=== PATIENT | female | born 1935 | race Caucasian/White ===

== ENCOUNTER 2016-06-06 01:32 | Inpatient (IN) | payer OTHER ==
[~2016-06-06] VITALS: Ht 152.4 cm; Wt 150.2 kg
[~2016-06-06 01:32] MED LIST: ADVAIR HFA120 INHAL1 IH; ALDACTONE50 MG PO; ALLOPURINOL100 MG PO; AMLODIPINE BESYL5 MG PO; AMOX TR-K CLV1 EAC4 PO; APLISOL5 TUB UNIT ID; APRESOLINE25 MG PO; ASPIRIN EC325 MG PO; ATENOLOL100 M1 NG; ATENOLOL100 MG PO; ATENOLOL50 MG PO; ATORVASTATIN CA40 MG PO; ATORVASTATIN CA80 MG PO; BACLOFEN10 MG PO; BENZONATATE100 MG PO; BUMETANIDE1 MG PO; BUMETANIDE2 MG PO; BUMEX1 MG PO; CALCITRIOL0.25 MCG PO; CARDIZEM CD,CA240 MG PO; CARDIZEM30 MG PO; CEPHALEXIN500 MG PO; CLARITIN10 M3 PO; COLACE100 MG PO; COLCHICINE0.6 M1 PO; COMBIVENT RESPIM4 GM IH; CRESTOR20 MG PO; DELZICOL400 M1 PO; DULCOLAX10 MG PR; ELIQUIS5 MG PO; ENEMA133 M2 PR; ERGOCALCIF50000 UNIT PO; Eye Drops BOTH EYES; FERROUS SULFAT325 MG PO; FLEET ENEMA-AD118 ML PR; FLONASE16 G1 BOTH NARES; FLORASTOR250 MG PO; FUROSEMIDE40 MG PO; FUROSEMIDE80 MG PO; GLUCOPHAGE XR,500 MG PO; GLUCOPHAGE500 MG PO; HYDROXYCHLOROQ200 MG PO; HYZAAR 50-121 TABLET PO; IRON325 MG PO; K-DUR20 MEQ PO; KEFLEX500 MG PO; KLOR-CON M2020 MEQ PO; KLOR-CON SPRIN10 MEQ PO; LASIX40 MG PO; LISINOPRIL-HCT1 EAC3 PO; LO-DOSE ASPIRIN81 M2 PO; LOPRESSOR100 M1 PO; LOPRESSOR25 MG PO; LOPRESSOR50 MG PO; LORATADINE10 M2 PO; LOSARTAN-HCTZ1 EACH PO; LYRICA50 MG PO; MEDROL DOSEPAK4 MG PO; METFORMIN HCL500 MG PO; METOCLOPRAMIDE10 MG PO; METOLAZONE10 MG PO; METOLAZONE5 MG PO; METOPROLOL SUCC25 MG PO; METOPROLOL TAR100 MG PO; METOPROLOL TART50 MG PO; METRONIDAZOLE500 MG PO; MILK OF MAGN PO; MOTRIN600 MG PO; NORVASC5 MG PO; NYSTATIN15 GM TP; OMEPRAZOLE40 M1 PO; PREDNISONE10 MG PO; PREDNISONE50 MG PO; PRILOSEC40 MG PO; PROAIR HFA8.5 GM IH; PROCRIT10000 UNI1 SC; PROMETHAZINE HC25 M1 PO; REGLAN10 MG PO; ROBITUSSIN COU118 M4 PO; ROBITUSSIN100 MG/5 M PO; ROCALTROL0.25 MCG PO; ROSUVASTATIN CA20 MG PO; SIMVASTATIN80 M1 PO; SPIRONOLACTONE25 MG PO; SPIRONOLACTONE50 MG PO; ST JOSEPH ASPIR81 M2 PO; SYMBICORT60 INHALAT IH; TEARS NATURALE-15 ML LEFT EYE; TESSALON PERLE100 MG PO; TRAMADOL HCL50 MG PO; TYLENOL EXTRA500 MG PO; TYLENOL REGULA325 MG PO; ULTRAM50 MG PO; VALIUM2 MG PO; VENTOLIN HFA18 GM IH; VICODIN 5-5001 EACH PO; VIT B-6; VITAMIN B-1100 MG PO; VITAMIN B-6100 MG PO; XARELTO20 MG PO; ZANTAC150 M2 PO; ZESTORETIC,P1 TABLET PO; ZYLOPRIM100 MG PO
[2016-06-06 01:55] LABS: POINT-OF-CARE METER ID UU13113702
[2016-06-06 02:15] LABS: HEMATOCRIT 29.7 % (36.0-46.0); MCH 28.2 PG (29.0-34.0); MCV 88.1 FL (83-99); MEAN PLAT.VOLUME 11.1 uM^3 (9.5-12.4); PLATELET COUNT 199 K/uL (156-360); RBC DIS.WIDTH-CV 16.3 % (11.8-14.6); RBC DIS.WIDTH-SD 51.7 % (39-53); RED BLOOD COUNT 3.37 M/uL (3.80-5.20); WHITE BLOOD COUNT 9.1 K/uL (4.1-10.2)
[2016-06-06 02:18] LABS: EOSINOPHIL (%) 4.2 % (0-5); EOSINOPHIL COUNT 0.4 K/uL (0-0.3); IMMATURE GRANULOCYTE (%) 0.2 % (0.0-0.7); IMMATURE GRANULOCYTE COUNT 0.2 K/uL; LYMPHOCYTE COUNT 1.1 K/uL (1.0-2.8); MONOCYTE (%) 10.5 % (3-12); NEUTROPHIL (%) 72.9 % (45-76); NEUTROPHIL COUNT 6.6 K/uL (1.8-6.4)
[2016-06-06 02:23] LABS: CHLORIDE 103 mEq/L (99-109); SODIUM 139 mEq/L (136-147)
[2016-06-06 02:27] LABS: ANION GAP 16 MEQ/L (2-14); TOTAL BILIRUBIN 0.8 mg/dL (0.0-1.0)
[2016-06-06 02:29] LABS: ALKALINE PHOSPHATASE 160 IU/L (3-129); GFR ESTIMATE (CALCULATED) 31 mL/min/
[2016-06-06 02:30] LABS: UREA NITROGEN (BUN) 19 mg/dL (9-23)
[2016-06-06 02:35] LABS: GLUCOSE 160 mg/dL (70-99); TROP-I INTERPRETATION NEGATIVE; TROPONIN-I < 0.01 ng/mL (0.0-0.30)
[2016-06-06 03:21] LABS: D-DIMER ELISA 3.29 mg/L FEU (< 0.57)
[2016-06-06] MEDS ORDERED: FERROUS SULFAT325 MG PO (07:56)
[2016-06-06] MEDS ORDERED: LASIX80 MG PO (07:58)
[2016-06-06] MEDS ORDERED: OMEPRAZOLE20 M2 PO (07:59)
[2016-06-06] MEDS ORDERED: DUONEB 2.5-0.5 M3 ML AEROSOL (08:01)
[2016-06-06] MEDS ORDERED: K-DUR20 MEQ PO (08:04)
[2016-06-06 10:16] LABS: TROP-I INTERPRETATION NEGATIVE; TROPONIN-I < 0.01 ng/mL (0.0-0.30)
[2016-06-06 11:46] VITALS: BP 117/57
[2016-06-06 15:45] LABS: TROP-I INTERPRETATION NEGATIVE; TROPONIN-I < 0.01 ng/mL (0.0-0.30)
[2016-06-06 15:54] VITALS: BP 120/58
[2016-06-06 20:00] VITALS: BP 117/57
[2016-06-07 00:54] VITALS: BP 94/68
[2016-06-07 05:49] VITALS: BP 122/65
[2016-06-07 06:19] LABS: ALKALINE PHOSPHATASE 136 IU/L (3-129); ANION GAP 8 MEQ/L (2-14); CHLORIDE 104 MEQ/L (99-109); GFR ESTIMATE (CALCULATED) 31 mL/min/; GLUCOSE 123 mg/dL (70-99); SAMPLE HEMOLYSIS CHECK 0; SAMPLE ICTERIC CHECK 0; SAMPLE LIPEMIA CHECK 0; SODIUM 139 MEQ/L (136-147); TOTAL BILIRUBIN 0.7 MG/DL (0.0-1.0); UREA NITROGEN (BUN) 21 mg/dL (9-23)
[2016-06-07 06:24] LABS: POTASSIUM 4.4 MEQ/L (3.7-5.4)
[2016-06-07 07:38] LABS: HEMATOCRIT 29.3 % (36.0-46.0); MCH 27.7 PG (29.0-34.0); MCHC 31.1 G/DL (30.0-36.0); MCV 89.3 FL (83-99); PLATELET COUNT 162 K/uL (156-360); RBC DIS.WIDTH-CV 16.9 % (11.8-14.6); RBC DIS.WIDTH-SD 55.4 % (39-53); RED BLOOD COUNT 3.28 M/uL (3.80-5.20); WHITE BLOOD COUNT 6.9 K/uL (4.1-10.2)
[2016-06-07 09:01] VITALS: BP 121/64
[2016-06-07 20:26] VITALS: BP 134/59
[2016-06-08 00:06] VITALS: BP 115/60
[2016-06-08 04:11] VITALS: BP 105/53
[2016-06-08 07:13] LABS: ANION GAP 8 MEQ/L (2-14); CHLORIDE 103 MEQ/L (99-109); GFR ESTIMATE (CALCULATED) 33 mL/min/; GLUCOSE 120 mg/dL (70-99); POTASSIUM 3.7 MEQ/L (3.7-5.4); SAMPLE HEMOLYSIS CHECK 0; SAMPLE ICTERIC CHECK 0; SAMPLE LIPEMIA CHECK 0; SODIUM 141 MEQ/L (136-147); UREA NITROGEN (BUN) 23 mg/dL (9-23)
[2016-06-08 09:22] VITALS: BP 125/49
[2016-06-08 12:48] VITALS: BP 105/78
[2016-06-08 16:28] VITALS: BP 117/54
[2016-06-08 19:44] VITALS: BP 128/58
[2016-06-09 00:18] VITALS: BP 128/59
[2016-06-09 06:09] VITALS: BP 135/85
[2016-06-09 08:00] VITALS: BP 146/81
[2016-06-09 08:06] LABS: ANION GAP 8 MEQ/L (2-14); CHLORIDE 103 MEQ/L (99-109); GFR ESTIMATE (CALCULATED) 31 mL/min/; GLUCOSE 115 mg/dL (70-99); POTASSIUM 3.8 MEQ/L (3.7-5.4); SAMPLE HEMOLYSIS CHECK 0; SAMPLE ICTERIC CHECK 0; SAMPLE LIPEMIA CHECK 0; SODIUM 141 MEQ/L (136-147); UREA NITROGEN (BUN) 27 mg/dL (9-23)
[2016-06-09] MEDS ORDERED: METOPROLOL SUCC25 MG PO (11:02)
[2016-06-09] MEDS ORDERED: LASIX80 MG PO (11:02)
[2016-06-09] MEDS ORDERED: DIGOXIN125 MCG PO (11:02)
[2016-06-09 12:00] VITALS: BP 106/58
== END 2016-06-09 15:58 | disposition home or self-care (01) | DRG 308 ==
LOC: EME 01:32 → EDOF 04:42 → 5WEST 11:28
PROVIDERS: Emergency Medicine; Internal Medicine; Internal Medicine Cardiovascular Disease; Student in an Organized Health Care Education/Training Program
DX: I48.0 Paroxysmal atrial fibrillation (principal); I50.33 Acute on chronic diastolic (congestive) heart failure; K92.2 Gastrointestinal hemorrhage, unspecified; J44.1 Chronic obstructive pulmonary disease with (acute) exacerbation; Z68.42 Body mass index [BMI] 45.0-49.9, adult; E87.70 Fluid overload, unspecified; E11.22 Type 2 diabetes mellitus with diabetic chronic kidney disease; I12.9 Hypertensive chronic kidney disease with stage 1 through stage 4 chronic kidney disease, or unspecified chronic kidney disease; N18.3 Chronic kidney disease, stage 3 (moderate); I89.0 Lymphedema, not elsewhere classified; M10.9 Gout, unspecified; K76.0 Fatty (change of) liver, not elsewhere classified; D50.9 Iron deficiency anemia, unspecified; K43.9 Ventral hernia without obstruction or gangrene; I87.2 Venous insufficiency (chronic) (peripheral); E78.5 Hyperlipidemia, unspecified; G47.33 Obstructive sleep apnea (adult) (pediatric); D64.9 Anemia, unspecified; M19.90 Unspecified osteoarthritis, unspecified site; E66.9 Obesity, unspecified; R07.89 Other chest pain; E87.6 Hypokalemia; Z86.73 Personal history of transient ischemic attack (TIA), and cerebral infarction without residual deficits
CPT/HCPCS: 71020; 80048; 80053; 80069; 82948; 83605; 83880; 84484; 84550; 85025; 85027; 85379; 93005; 94640; 94640 76; 99202; 99281; 99285; G0378; G8978 GP CK; G8979 CJ; J1650; J1940

== ENCOUNTER 2016-06-14 07:44 | Inpatient (IN) | payer OTHER ==
[~2016-06-14] VITALS: Ht 152.4 cm; Wt 114.7 kg
[~2016-06-14 07:44] MED LIST changes: +DIGOXIN125 MCG PO; +DUONEB 2.5-0.5 M3 ML AEROSOL; +LASIX80 MG PO; +OMEPRAZOLE20 M2 PO
[2016-06-14 08:19] LABS: HEMATOCRIT 32.9 % (36.0-46.0); MCH 28.3 PG (29.0-34.0); MCHC 31.6 G/DL (30.0-36.0); MCV 89.4 FL (83-99); MEAN PLAT.VOLUME 10.9 uM^3 (9.5-12.4); PLATELET COUNT 180 K/uL (156-360); RED BLOOD COUNT 3.68 M/uL (3.80-5.20)
[2016-06-14 08:20] LABS: WHITE BLOOD COUNT 9.2 K/uL (4.1-10.2)
[2016-06-14 08:26] LABS: CHLORIDE 104 mEq/L (99-109); POTASSIUM 3.6 mEq/L (3.7-5.4); SODIUM 140 mEq/L (136-147)
[2016-06-14 08:28] LABS: GLUCOSE 158 mg/dL (70-99)
[2016-06-14 08:29] LABS: ANION GAP 13 MEQ/L (2-14)
[2016-06-14 08:32] LABS: GFR ESTIMATE (CALCULATED) 29 mL/min/; UREA NITROGEN (BUN) 30 mg/dL (9-23)
[2016-06-14 08:38] LABS: TROP-I INTERPRETATION NEGATIVE; TROPONIN-I < 0.01 ng/mL (0.0-0.30)
[2016-06-14 08:40] LABS: DIGOXIN 0.5 ng/mL (0.8-2.0)
[2016-06-14 09:57] LABS: ADD MIUA? YES; BILIRUBIN NEGATIVE; BLOOD TRACE; COLOR YELLOW ((YELLOW)); GLUCOSE (STRIP) NEGATIVE; KETONES NEGATIVE; LEUKOCYTES MODERATE; NITRITE NEGATIVE; PROTEIN (STRIP) NEGATIVE; SPECIFIC GRAVITY 1.013 (1.000-1.030); UROBILINOGEN 0.2 MG/DL (0.2-1.0)
[2016-06-14 10:09] LABS: EPITHELIAL CELLS 1+; MUCUS RARE; RED BLOOD CELLS 0-5 /HPF (0-5); WHITE BLOOD CELLS 15-20 /HPF (0-5)
[2016-06-14 10:10] LABS: BACTERIA 1+; CASTS PRESENT /LPF; CRYSTALS NONE SEEN; HYALINE CASTS 0-5 /LPF; UCUL ADDED? NO
[2016-06-14] MEDS ORDERED: TOPROL XL25 MG PO (12:06)
[2016-06-14 18:10] VITALS: BP 138/78
[2016-06-14 19:25] VITALS: BP 133/65
[2016-06-14 23:06] VITALS: BP 133/58
[2016-06-15 03:57] VITALS: BP 135/63
[2016-06-15 07:07] VITALS: BP 138/60
[2016-06-15 07:16] LABS: HEMATOCRIT 31.8 % (36.0-46.0); MCH 27.6 PG (29.0-34.0); MCHC 31.4 G/DL (30.0-36.0); MCV 87.8 FL (83-99); RBC DIS.WIDTH-CV 17.3 % (11.8-14.6); RBC DIS.WIDTH-SD 55.8 % (39-53); RED BLOOD COUNT 3.62 M/uL (3.80-5.20); WHITE BLOOD COUNT 8.4 K/uL (4.1-10.2)
[2016-06-15 07:55] LABS: ALKALINE PHOSPHATASE 128 IU/L (3-129); ANION GAP 8 MEQ/L (2-14); CHLORIDE 105 MEQ/L (99-109); GFR ESTIMATE (CALCULATED) 36 mL/min/; SAMPLE HEMOLYSIS CHECK 0; SAMPLE ICTERIC CHECK 0; SAMPLE LIPEMIA CHECK 0; SODIUM 142 MEQ/L (136-147); TOTAL BILIRUBIN 0.8 MG/DL (0.0-1.0); UREA NITROGEN (BUN) 28 mg/dL (9-23)
[2016-06-15 08:01] LABS: GLUCOSE 113 mg/dL (70-99)
[2016-06-15 08:02] LABS: PLATELET COUNT UNABLE TO REPORT K/uL (156-360)
[2016-06-15 12:03] VITALS: BP 156/60
[2016-06-15 16:24] VITALS: BP 140/58
[2016-06-15 19:00] VITALS: BP 137/64
[2016-06-15 23:13] VITALS: BP 121/60
[2016-06-16 03:46] VITALS: BP 122/58
[2016-06-16 07:28] LABS: ALKALINE PHOSPHATASE 130 IU/L (3-129); ANION GAP 12 MEQ/L (2-14); CHLORIDE 103 MEQ/L (99-109); GFR ESTIMATE (CALCULATED) 39 mL/min/; GLUCOSE 109 mg/dL (70-99); POTASSIUM 3.9 MEQ/L (3.7-5.4); SAMPLE HEMOLYSIS CHECK 0; SAMPLE ICTERIC CHECK 0; SAMPLE LIPEMIA CHECK 0; SODIUM 145 MEQ/L (136-147); TOTAL BILIRUBIN 0.7 MG/DL (0.0-1.0); UREA NITROGEN (BUN) 27 mg/dL (9-23)
[2016-06-16 07:31] LABS: HEMATOCRIT 30.6 % (36.0-46.0); MCH 28.4 PG (29.0-34.0); MCHC 31.7 G/DL (30.0-36.0); MCV 89.5 FL (83-99); RBC DIS.WIDTH-CV 17.3 % (11.8-14.6); RBC DIS.WIDTH-SD 56.6 % (39-53); RED BLOOD COUNT 3.42 M/uL (3.80-5.20); WHITE BLOOD COUNT 7.3 K/uL (4.1-10.2)
[2016-06-16 08:03] VITALS: BP 135/73
[2016-06-16 08:07] LABS: BASOPHIL COUNT 0.1 K/uL (0-0.1); EOSINOPHIL (%) 5.5 % (0-5); EOSINOPHIL COUNT 0.4 K/uL (0-0.3); IMMATURE GRANULOCYTE (%) 0.1 % (0.0-0.7); LYMPHOCYTE COUNT 1.1 K/uL (1.0-2.8); MONOCYTE (%) 6.8 % (3-12); MONOCYTE COUNT 0.5 K/uL (0-0.8); NEUTROPHIL COUNT 5.3 K/uL (1.8-6.4)
[2016-06-16 08:51] LABS: MEAN PLAT.VOLUME 11.3 uM^3 (9.5-12.4); PLAT.SUFFICIENCY DECREASED; USER ID SDF
[2016-06-16 08:55] LABS: PLATELET COUNT 147 K/uL (156-360)
[2016-06-16 11:33] VITALS: BP 129/66
[2016-06-16 16:07] VITALS: BP 118/69
[2016-06-16 20:00] VITALS: BP 120/31
[2016-06-17] VITALS (7 sets, daily range): BP systolic 112–134; BP diastolic 54–66
[2016-06-17 01:17] LABS: ADD MIUA? NO; BILIRUBIN NEGATIVE; BLOOD NEGATIVE; COLOR YELLOW ((YELLOW)); GLUCOSE (STRIP) NEGATIVE; KETONES NEGATIVE; LEUKOCYTES NEGATIVE; NITRITE NEGATIVE; PROTEIN (STRIP) NEGATIVE; SPECIFIC GRAVITY 1.016 (1.000-1.030); UCUL ADDED? NO; UROBILINOGEN 0.2 MG/DL (0.2-1.0)
[2016-06-17 07:15] LABS: ANION GAP 8 MEQ/L (2-14); CHLORIDE 102 MEQ/L (99-109); GFR ESTIMATE (CALCULATED) 33 mL/min/; GLUCOSE 114 mg/dL (70-99); POTASSIUM 3.8 MEQ/L (3.7-5.4); SAMPLE HEMOLYSIS CHECK 0; SAMPLE ICTERIC CHECK 0; SAMPLE LIPEMIA CHECK 0; SODIUM 142 MEQ/L (136-147); UREA NITROGEN (BUN) 27 mg/dL (9-23)
[2016-06-18 03:30] VITALS: BP 131/68
[2016-06-18 07:48] LABS: ANION GAP 9 MEQ/L (2-14); CHLORIDE 99 MEQ/L (99-109); GFR ESTIMATE (CALCULATED) 36 mL/min/; GLUCOSE 113 mg/dL (70-99); POTASSIUM 3.9 MEQ/L (3.7-5.4); SAMPLE HEMOLYSIS CHECK 0; SAMPLE ICTERIC CHECK 0; SAMPLE LIPEMIA CHECK 0; SODIUM 142 MEQ/L (136-147); UREA NITROGEN (BUN) 29 mg/dL (9-23)
[2016-06-18 07:50] VITALS: BP 125/58
[2016-06-18] MEDS ORDERED: ALDACTAZIDE 251 EACH PO (10:10)
[2016-06-18] MEDS ORDERED: FUROSEMIDE80 MG PO (10:10)
[2016-06-18 12:00] VITALS: BP 121/58
== END 2016-06-18 15:41 | disposition home or self-care (01) | DRG 292 ==
LOC: EME → EDBD 07:44 → EME 07:44 → 2EAST 09:11 → EDOF 09:11 → 2EAST 17:26
PROVIDERS: Emergency Medicine; Hospitalist; Internal Medicine
DX: I50.33 Acute on chronic diastolic (congestive) heart failure (principal); Z68.42 Body mass index [BMI] 45.0-49.9, adult; E66.01 Morbid (severe) obesity due to excess calories; E88.09 Other disorders of plasma-protein metabolism, not elsewhere classified; E11.22 Type 2 diabetes mellitus with diabetic chronic kidney disease; I12.9 Hypertensive chronic kidney disease with stage 1 through stage 4 chronic kidney disease, or unspecified chronic kidney disease; M48.02 Spinal stenosis, cervical region; N18.3 Chronic kidney disease, stage 3 (moderate); E87.6 Hypokalemia; I48.2 Chronic atrial fibrillation; E78.5 Hyperlipidemia, unspecified; I89.0 Lymphedema, not elsewhere classified; D50.9 Iron deficiency anemia, unspecified; E21.3 Hyperparathyroidism, unspecified; D63.1 Anemia in chronic kidney disease; K74.60 Unspecified cirrhosis of liver; G47.30 Sleep apnea, unspecified; F17.210 Nicotine dependence, cigarettes, uncomplicated; Z90.49 Acquired absence of other specified parts of digestive tract; I35.0 Nonrheumatic aortic (valve) stenosis; Z96.659 Presence of unspecified artificial knee joint; E55.9 Vitamin D deficiency, unspecified; Z86.73 Personal history of transient ischemic attack (TIA), and cerebral infarction without residual deficits
CPT/HCPCS: 71010; 80048; 80053; 80069; 80162; 81003; 83880; 84484; 84550; 85025; 85027; 93005; 93306; 93971; 94640 76; 99202; 99281; 99285; J0696; J1644; J1940; J7050

== ENCOUNTER 2016-06-21 20:39 | Emergency (ER) | payer OTHER ==
[~2016-06-21] VITALS: Ht 152.4 cm; Wt 109.5 kg
[~2016-06-21 20:39] MED LIST changes: +ALDACTAZIDE 251 EACH PO; +TOPROL XL25 MG PO
[2016-06-21 21:18] LABS: HEMATOCRIT 31.4 % (36.0-46.0); MCHC 31.5 G/DL (30.0-36.0); MCV 88.7 FL (83-99); MEAN PLAT.VOLUME 11.6 uM^3 (9.5-12.4); PLATELET COUNT 166 K/uL (156-360); RBC DIS.WIDTH-SD 53.3 % (39-53); RED BLOOD COUNT 3.54 M/uL (3.80-5.20); WHITE BLOOD COUNT 8.7 K/uL (4.1-10.2)
[2016-06-21 21:33] LABS: CHLORIDE 100 mEq/L (99-109); POTASSIUM 3.9 mEq/L (3.7-5.4); SODIUM 139 mEq/L (136-147)
[2016-06-21 21:35] LABS: GLUCOSE 199 mg/dL (70-99)
[2016-06-21 21:36] LABS: ANION GAP 11 MEQ/L (2-14)
[2016-06-21 21:38] LABS: GFR ESTIMATE (CALCULATED) 27 mL/min/
[2016-06-21 21:39] LABS: UREA NITROGEN (BUN) 38 mg/dL (9-23)
[2016-06-21 21:44] LABS: TROP-I INTERPRETATION NEGATIVE; TROPONIN-I < 0.01 ng/mL (0.0-0.30)
[2016-06-21 23:27] LABS: TROP-I INTERPRETATION NEGATIVE; TROPONIN-I < 0.01 ng/mL (0.0-0.30)
[2016-06-22 00:32] VITALS: BP 128/47
== END 2016-06-22 00:35 | disposition home or self-care (01) ==
LOC: EME → EDBD 20:39 → EME 20:39
PROVIDERS: Emergency Medicine
DX: J06.9 Acute upper respiratory infection, unspecified (principal); R07.9 Chest pain, unspecified; J45.909 Unspecified asthma, uncomplicated; G89.29 Other chronic pain; E78.5 Hyperlipidemia, unspecified; I10 Essential (primary) hypertension; K21.9 Gastro-esophageal reflux disease without esophagitis; E11.9 Type 2 diabetes mellitus without complications
CPT/HCPCS: 71020; 80048; 84484; 85027; 93005; 99281; 99285

== ENCOUNTER 2016-06-27 03:11 | Inpatient (IN) | payer OTHER ==
[~2016-06-27] VITALS: Ht 154.9 cm; Wt 107.0 kg
[2016-06-27 03:38] LABS: HEMATOCRIT 33.1 % (36.0-46.0); MCH 27.9 PG (29.0-34.0); MCV 87.1 FL (83-99); MEAN PLAT.VOLUME 11.6 uM^3 (9.5-12.4); PLATELET COUNT 200 K/uL (156-360); RBC DIS.WIDTH-SD 53.1 % (39-53); WHITE BLOOD COUNT 8.3 K/uL (4.1-10.2)
[2016-06-27 03:45] LABS: CHLORIDE 98 mEq/L (99-109); POTASSIUM 3.8 mEq/L (3.7-5.4); SODIUM 137 mEq/L (136-147)
[2016-06-27 03:48] LABS: GLUCOSE 176 mg/dL (70-99)
[2016-06-27 03:49] LABS: ANION GAP 14 MEQ/L (2-14)
[2016-06-27 03:51] LABS: ALKALINE PHOSPHATASE 148 IU/L (3-129); GFR ESTIMATE (CALCULATED) 21 mL/min/
[2016-06-27 03:52] LABS: UREA NITROGEN (BUN) 40 mg/dL (9-23)
[2016-06-27 03:55] LABS: LIPASE 16 U/L (1.0-51.0)
[2016-06-27 07:34] VITALS: BP 122/57
[2016-06-27 14:26] VITALS: BP 128/58
[2016-06-27 16:00] VITALS: BP 126/57
[2016-06-28] VITALS (7 sets, daily range): BP systolic 13–173; BP diastolic 50–98
[2016-06-28 06:56] LABS: HEMATOCRIT 28.9 % (36.0-46.0); MCH 28.4 PG (29.0-34.0); MCHC 32.5 G/DL (30.0-36.0); MCV 87.3 FL (83-99); MEAN PLAT.VOLUME 11.9 uM^3 (9.5-12.4); PLATELET COUNT 165 K/uL (156-360); RBC DIS.WIDTH-CV 17.3 % (11.8-14.6); RBC DIS.WIDTH-SD 54.7 % (39-53); RED BLOOD COUNT 3.31 M/uL (3.80-5.20); WHITE BLOOD COUNT 6.1 K/uL (4.1-10.2)
[2016-06-28 07:04] LABS: EOSINOPHIL (%) 5.8 % (0-5); EOSINOPHIL COUNT 0.4 K/uL (0-0.3); MONOCYTE (%) 7.4 % (3-12); MONOCYTE COUNT 0.5 K/uL (0-0.8); NEUTROPHIL (%) 69.9 % (45-76); NEUTROPHIL COUNT 4.2 K/uL (1.8-6.4)
[2016-06-28 07:20] LABS: ANION GAP 9 MEQ/L (2-14); CHLORIDE 99 MEQ/L (99-109); GFR ESTIMATE (CALCULATED) 22 mL/min/; POTASSIUM 4.2 MEQ/L (3.7-5.4); SAMPLE HEMOLYSIS CHECK 0; SAMPLE ICTERIC CHECK 0; SAMPLE LIPEMIA CHECK 0; SODIUM 139 MEQ/L (136-147); UREA NITROGEN (BUN) 39 mg/dL (9-23)
[2016-06-28 07:23] LABS: GLUCOSE 110 mg/dL (70-99)
[2016-06-28 22:11] LABS: POINT-OF-CARE METER ID UU13113725
[2016-06-29 02:38] VITALS: BP 111/53
[2016-06-29 05:59] LABS: POINT-OF-CARE METER ID UU13113725
[2016-06-29 06:30] LABS: HEMATOCRIT 29.4 % (36.0-46.0); MCH 28.2 PG (29.0-34.0); MCHC 32.3 G/DL (30.0-36.0); MCV 87.2 FL (83-99); MEAN PLAT.VOLUME 11.2 uM^3 (9.5-12.4); PLATELET COUNT 158 K/uL (156-360); RBC DIS.WIDTH-CV 17.1 % (11.8-14.6); RBC DIS.WIDTH-SD 54.6 % (39-53); RED BLOOD COUNT 3.37 M/uL (3.80-5.20); WHITE BLOOD COUNT 6.8 K/uL (4.1-10.2)
[2016-06-29 06:54] LABS: EOSINOPHIL (%) 4.7 % (0-5); EOSINOPHIL COUNT 0.3 K/uL (0-0.3); LYMPHOCYTE COUNT 1.1 K/uL (1.0-2.8); MONOCYTE (%) 8.7 % (3-12); MONOCYTE COUNT 0.6 K/uL (0-0.8); NEUTROPHIL (%) 69.9 % (45-76); NEUTROPHIL COUNT 4.8 K/uL (1.8-6.4)
[2016-06-29 06:56] LABS: ANION GAP 10 MEQ/L (2-14); CHLORIDE 99 MEQ/L (99-109); GFR ESTIMATE (CALCULATED) 21 mL/min/; GLUCOSE 119 mg/dL (70-99); POTASSIUM 4.1 MEQ/L (3.7-5.4); SAMPLE HEMOLYSIS CHECK 0; SAMPLE ICTERIC CHECK 0; SAMPLE LIPEMIA CHECK 0; SODIUM 139 MEQ/L (136-147); UREA NITROGEN (BUN) 44 mg/dL (9-23)
[2016-06-29 08:17] VITALS: BP 130/58
[2016-06-29 11:09] LABS: POINT-OF-CARE METER ID UU13113725
[2016-06-29 11:29] VITALS: BP 129/59
[2016-06-29 16:15] LABS: POINT-OF-CARE METER ID UU13113725
[2016-06-29 16:35] VITALS: BP 103/53
[2016-06-29 19:44] LABS: INTER. NORMALIZED RATIO 1.1; PROTHROMBIN TIME 11.7 (9.2-11.2); PTT 24.9 (25-32)
[2016-06-29 21:18] LABS: DIGOXIN 1.4 ng/mL (0.8-2.0)
[2016-06-29 23:10] VITALS: BP 121/57
[2016-06-30 03:04] VITALS: BP 141/62
[2016-06-30 07:22] LABS: HEMATOCRIT 31.8 % (36.0-46.0); MCH 28.1 PG (29.0-34.0); MCHC 32.4 G/DL (30.0-36.0); MCV 86.6 FL (83-99); PLATELET COUNT 165 K/uL (156-360); RBC DIS.WIDTH-CV 17.1 % (11.8-14.6); RED BLOOD COUNT 3.67 M/uL (3.80-5.20); WHITE BLOOD COUNT 6.9 K/uL (4.1-10.2)
[2016-06-30 07:45] LABS: ALKALINE PHOSPHATASE 133 IU/L (3-129); ANION GAP 10 MEQ/L (2-14); CHLORIDE 99 MEQ/L (99-109); GFR ESTIMATE (CALCULATED) 20 mL/min/; GLUCOSE 120 mg/dL (70-99); POTASSIUM 4.2 MEQ/L (3.7-5.4); SAMPLE HEMOLYSIS CHECK 0; SAMPLE ICTERIC CHECK 0; SAMPLE LIPEMIA CHECK 0; SODIUM 138 MEQ/L (136-147); TOTAL BILIRUBIN 0.9 MG/DL (0.0-1.0); UREA NITROGEN (BUN) 40 mg/dL (9-23)
[2016-06-30 08:15] VITALS: BP 142/68
[2016-06-30 11:06] VITALS: BP 148/68
[2016-06-30 15:08] VITALS: BP 139/64
[2016-06-30 16:22] LABS: POINT-OF-CARE METER ID UU13113725
[2016-06-30 19:40] VITALS: BP 119/78
[2016-06-30 19:46] VITALS: BP 129/60
[2016-06-30 21:08] LABS: POINT-OF-CARE METER ID UU13113725
[2016-07-01 00:29] VITALS: BP 151/98
[2016-07-01 03:49] VITALS: BP 131/66
[2016-07-01 06:28] LABS: HEMATOCRIT 30.7 % (36.0-46.0); MCH 27.7 PG (29.0-34.0); MCHC 32.2 G/DL (30.0-36.0); MEAN PLAT.VOLUME 11.5 uM^3 (9.5-12.4); PLATELET COUNT 185 K/uL (156-360); RBC DIS.WIDTH-SD 53.3 % (39-53); RED BLOOD COUNT 3.57 M/uL (3.80-5.20); WHITE BLOOD COUNT 8.3 K/uL (4.1-10.2)
[2016-07-01 06:53] LABS: ANION GAP 11 MEQ/L (2-14); CHLORIDE 102 MEQ/L (99-109); GFR ESTIMATE (CALCULATED) 23 mL/min/; GLUCOSE 134 mg/dL (70-99); IRON 50 MCG/DL (35-150); SAMPLE HEMOLYSIS CHECK 0; SAMPLE ICTERIC CHECK 0; SAMPLE LIPEMIA CHECK 0; SODIUM 141 MEQ/L (136-147); UREA NITROGEN (BUN) 35 mg/dL (9-23)
[2016-07-01 07:00] LABS: EOSINOPHIL (%) 2.3 % (0-5); EOSINOPHIL COUNT 0.2 K/uL (0-0.3); IMMATURE GRANULOCYTE (%) 0.2 % (0.0-0.7); LYMPHOCYTE COUNT 1.1 K/uL (1.0-2.8); MONOCYTE (%) 8.4 % (3-12); MONOCYTE COUNT 0.7 K/uL (0-0.8); NEUTROPHIL COUNT 6.2 K/uL (1.8-6.4)
[2016-07-01 07:30] VITALS: BP 142/73
[2016-07-01 11:20] VITALS: BP 173/83
[2016-07-01 15:40] VITALS: BP 142/65
[2016-07-01 22:33] VITALS: BP 143/62
[2016-07-02 00:55] VITALS: BP 163/93
[2016-07-02 01:15] VITALS: BP 158/87
[2016-07-02 05:49] LABS: POINT-OF-CARE METER ID UU13113725
[2016-07-02 07:53] LABS: ALKALINE PHOSPHATASE 105 IU/L (3-129); ANION GAP 10 MEQ/L (2-14); ANION GAP 11 MEQ/L (2-14); CHLORIDE 105 MEQ/L (99-109); CHLORIDE 106 MEQ/L (99-109); GFR ESTIMATE (CALCULATED) 26 mL/min/; GLUCOSE 87 mg/dL (70-99); GLUCOSE 89 mg/dL (70-99); POTASSIUM 3.9 MEQ/L (3.7-5.4); SAMPLE HEMOLYSIS CHECK 0; SAMPLE ICTERIC CHECK 0; SAMPLE LIPEMIA CHECK 0; SODIUM 142 MEQ/L (136-147); SODIUM 143 MEQ/L (136-147); TOTAL BILIRUBIN 0.8 MG/DL (0.0-1.0); UREA NITROGEN (BUN) 32 mg/dL (9-23)
[2016-07-02 08:08] VITALS: BP 144/90
[2016-07-02 10:58] LABS: ADD MIUA? NO; BILIRUBIN NEGATIVE; BLOOD NEGATIVE; COLOR YELLOW ((YELLOW)); GLUCOSE (STRIP) NEGATIVE; KETONES NEGATIVE; LEUKOCYTES NEGATIVE; NITRITE NEGATIVE; PROTEIN (STRIP) NEGATIVE; SPECIFIC GRAVITY 1.009 (1.000-1.030); UROBILINOGEN 0.2 MG/DL (0.2-1.0)
[2016-07-02 11:36] LABS: POINT-OF-CARE METER ID UU13113725
[2016-07-02 13:55] VITALS: BP 134/69
[2016-07-02 15:43] VITALS: BP 135/63
[2016-07-03 00:38] VITALS: BP 138/63
[2016-07-03 03:42] VITALS: BP 126/64
[2016-07-03 08:25] LABS: ANION GAP 12 MEQ/L (2-14); CHLORIDE 104 MEQ/L (99-109); GFR ESTIMATE (CALCULATED) 26 mL/min/; GLUCOSE 104 mg/dL (70-99); POTASSIUM 3.8 MEQ/L (3.7-5.4); SAMPLE HEMOLYSIS CHECK 0; SAMPLE ICTERIC CHECK 0; SAMPLE LIPEMIA CHECK 0; SODIUM 143 MEQ/L (136-147); UREA NITROGEN (BUN) 28 mg/dL (9-23)
[2016-07-03 08:40] VITALS: BP 118/54
[2016-07-03 11:32] LABS: POINT-OF-CARE METER ID UU13113725
[2016-07-03 17:31] VITALS: BP 137/62
[2016-07-03 22:49] VITALS: BP 122/58
[2016-07-04 06:27] LABS: ANION GAP 10 MEQ/L (2-14); CHLORIDE 103 MEQ/L (99-109); GFR ESTIMATE (CALCULATED) 27 mL/min/; GLUCOSE 117 mg/dL (70-99); POTASSIUM 4.1 MEQ/L (3.7-5.4); SAMPLE HEMOLYSIS CHECK 0; SAMPLE ICTERIC CHECK 0; SAMPLE LIPEMIA CHECK 0; SODIUM 141 MEQ/L (136-147); UREA NITROGEN (BUN) 24 mg/dL (9-23)
[2016-07-04 08:48] VITALS: BP 128/64
[2016-07-04 23:58] VITALS: BP 132/64
[2016-07-05 06:34] LABS: HEMATOCRIT 30.7 % (36.0-46.0); MCH 28.5 PG (29.0-34.0); MCHC 31.9 G/DL (30.0-36.0); MCV 89.2 FL (83-99); MEAN PLAT.VOLUME 11.5 uM^3 (9.5-12.4); PLATELET COUNT 144 K/uL (156-360); RBC DIS.WIDTH-CV 17.2 % (11.8-14.6); RED BLOOD COUNT 3.44 M/uL (3.80-5.20); WHITE BLOOD COUNT 7.7 K/uL (4.1-10.2)
[2016-07-05 06:56] LABS: ANION GAP 10 MEQ/L (2-14); CHLORIDE 101 MEQ/L (99-109); GFR ESTIMATE (CALCULATED) 31 mL/min/; GLUCOSE 107 mg/dL (70-99); POTASSIUM 4.2 MEQ/L (3.7-5.4); SAMPLE HEMOLYSIS CHECK 0; SAMPLE ICTERIC CHECK 0; SAMPLE LIPEMIA CHECK 0; SODIUM 137 MEQ/L (136-147); UREA NITROGEN (BUN) 23 mg/dL (9-23)
[2016-07-05 07:15] LABS: EOSINOPHIL (%) 4.1 % (0-5); EOSINOPHIL COUNT 0.3 K/uL (0-0.3); IMMATURE GRANULOCYTE (%) 0.3 % (0.0-0.7); LYMPHOCYTE COUNT 1.1 K/uL (1.0-2.8); MONOCYTE (%) 9.2 % (3-12); MONOCYTE COUNT 0.7 K/uL (0-0.8); NEUTROPHIL COUNT 5.6 K/uL (1.8-6.4)
[2016-07-05 07:28] VITALS: BP 114/63
[2016-07-05] MEDS ORDERED: BUMETANIDE1 MG PO (11:14)
[2016-07-05] MEDS ORDERED: KRISTALOSE20 GM PO (11:16)
== END 2016-07-05 13:53 | disposition home health service (06) | DRG 442 ==
LOC: EME 03:11 → EDOF 05:35 → 5WEST 07:10 → 5EAST 06-28 12:48
PROVIDERS: Internal Medicine; Specialist
DX: K72.90 Hepatic failure, unspecified without coma (principal); R18.8 Other ascites; K76.6 Portal hypertension; I50.32 Chronic diastolic (congestive) heart failure; N25.81 Secondary hyperparathyroidism of renal origin; K92.1 Melena; Z68.42 Body mass index [BMI] 45.0-49.9, adult; R26.2 Difficulty in walking, not elsewhere classified; R00.1 Bradycardia, unspecified; E86.0 Dehydration; R11.2 Nausea with vomiting, unspecified; I12.9 Hypertensive chronic kidney disease with stage 1 through stage 4 chronic kidney disease, or unspecified chronic kidney disease; N18.3 Chronic kidney disease, stage 3 (moderate); E11.22 Type 2 diabetes mellitus with diabetic chronic kidney disease; E11.649 Type 2 diabetes mellitus with hypoglycemia without coma; R79.89 Other specified abnormal findings of blood chemistry; T50.2X5A Adverse effect of carbonic-anhydrase inhibitors, benzothiadiazides and other diuretics, initial encounter; K74.60 Unspecified cirrhosis of liver; D50.9 Iron deficiency anemia, unspecified; I48.0 Paroxysmal atrial fibrillation; I89.0 Lymphedema, not elsewhere classified; I87.8 Other specified disorders of veins; K21.9 Gastro-esophageal reflux disease without esophagitis; J44.9 Chronic obstructive pulmonary disease, unspecified; E78.5 Hyperlipidemia, unspecified; E55.9 Vitamin D deficiency, unspecified; M19.90 Unspecified osteoarthritis, unspecified site; Z96.653 Presence of artificial knee joint, bilateral; Z66 Do not resuscitate; E66.01 Morbid (severe) obesity due to excess calories; Z88.5 Allergy status to narcotic agent; Z86.73 Personal history of transient ischemic attack (TIA), and cerebral infarction without residual deficits
CPT/HCPCS: 70450; 71020; 74176; 80048; 80053; 80069; 80162; 81003; 82140; 82728; 82948; 83540; 83690; 83880; 84466; 85025; 85027; 85610; 85730; 94640; 94640 76; 97530 GO; 97530 GP; 99202; 99281; 99285; G0378; J0881; J1644; J1815; J2405; J2765; J3010; J7030; Q0169; S0028

== ENCOUNTER 2016-08-23 17:04 | Inpatient (IN) | payer OTHER ==
[~2016-08-23] VITALS: Ht 152.4 cm; Wt 96.6 kg
[~2016-08-23 17:04] MED LIST changes: +KRISTALOSE20 GM PO
[2016-08-23 17:40] LABS: HEMATOCRIT 32.9 % (36.0-46.0); MCHC 32.5 G/DL (30.0-36.0); MCV 86.1 FL (83-99); MEAN PLAT.VOLUME 10.9 uM^3 (9.5-12.4); PLATELET COUNT 181 K/uL (156-360); RBC DIS.WIDTH-CV 16.3 % (11.8-14.6); RBC DIS.WIDTH-SD 51.1 % (39-53); RED BLOOD COUNT 3.82 M/uL (3.80-5.20); WHITE BLOOD COUNT 7.2 K/uL (4.1-10.2)
[2016-08-23 17:43] LABS: CHLORIDE 100 mEq/L (99-109); POTASSIUM 3.5 mEq/L (3.7-5.4); SODIUM 139 mEq/L (136-147)
[2016-08-23 17:45] LABS: GLUCOSE 168 mg/dL (70-99)
[2016-08-23 17:46] LABS: ANION GAP 16 MEQ/L (2-14)
[2016-08-23 17:47] LABS: TOTAL BILIRUBIN 0.7 mg/dL (0.0-1.0)
[2016-08-23 17:48] LABS: ALKALINE PHOSPHATASE 127 IU/L (3-129)
[2016-08-23 17:49] LABS: GFR ESTIMATE (CALCULATED) 23 mL/min/
[2016-08-23 17:50] LABS: UREA NITROGEN (BUN) 39 mg/dL (9-23)
[2016-08-23 17:52] LABS: LIPASE 34 U/L (1.0-51.0)
[2016-08-23 18:04] LABS: ADD MIUA? YES; BILIRUBIN NEGATIVE; BLOOD SMALL; COLOR YELLOW ((YELLOW)); GLUCOSE (STRIP) NEGATIVE; KETONES NEGATIVE; LEUKOCYTES NEGATIVE; NITRITE NEGATIVE; PROTEIN (STRIP) NEGATIVE; SPECIFIC GRAVITY 1.009 (1.000-1.030); UROBILINOGEN 0.2 MG/DL (0.2-1.0)
[2016-08-23 18:18] LABS: RED BLOOD CELLS 0-5 /HPF (0-5); WHITE BLOOD CELLS 0-5 /HPF (0-5)
[2016-08-23 18:19] LABS: BACTERIA RARE /HPF; CASTS PRESENT /LPF; EPITHELIAL CELLS NONE SEEN /HPF; HYALINE CASTS 15-20 /LPF; MUCUS 1+ /LPF; UCUL ADDED? NO
[2016-08-23 23:44] VITALS: BP 106/54
[2016-08-24 04:08] VITALS: BP 110/57
[2016-08-24 07:38] LABS: ALKALINE PHOSPHATASE 96 IU/L (3-129); ANION GAP 10 MEQ/L (2-14); CHLORIDE 103 MEQ/L (99-109); DIRECT BILIRUBIN 0.3 mg/dL (0.0-0.3); GFR ESTIMATE (CALCULATED) 27 mL/min/; POTASSIUM 3.3 MEQ/L (3.7-5.4); SAMPLE HEMOLYSIS CHECK 0; SAMPLE ICTERIC CHECK 0; SAMPLE LIPEMIA CHECK 0; SODIUM 141 MEQ/L (136-147); TOTAL BILIRUBIN 0.7 MG/DL (0.0-1.0); UREA NITROGEN (BUN) 34 mg/dL (9-23)
[2016-08-24 07:40] LABS: GLUCOSE 107 mg/dL (70-99)
[2016-08-24 07:50] VITALS: BP 109/57
[2016-08-24 12:05] VITALS: BP 109/51
[2016-08-24 15:45] VITALS: BP 104/55
[2016-08-24 19:05] VITALS: BP 101/54
[2016-08-24 23:09] VITALS: BP 122/84
[2016-08-25 03:21] VITALS: BP 113/62
[2016-08-25 06:48] LABS: MCH 27.6 PG (29.0-34.0); MCHC 31.8 G/DL (30.0-36.0); MEAN PLAT.VOLUME 11.5 uM^3 (9.5-12.4); PLATELET COUNT 144 K/uL (156-360); RBC DIS.WIDTH-CV 16.7 % (11.8-14.6); RBC DIS.WIDTH-SD 52.6 % (39-53); RED BLOOD COUNT 3.22 M/uL (3.80-5.20); WHITE BLOOD COUNT 5.7 K/uL (4.1-10.2)
[2016-08-25 06:59] LABS: ALKALINE PHOSPHATASE 85 IU/L (3-129); ANION GAP 11 MEQ/L (2-14); CHLORIDE 107 MEQ/L (99-109); GFR ESTIMATE (CALCULATED) 29 mL/min/; GLUCOSE 84 mg/dL (70-99); POTASSIUM 3.1 MEQ/L (3.7-5.4); SAMPLE HEMOLYSIS CHECK 0; SAMPLE ICTERIC CHECK 0; SAMPLE LIPEMIA CHECK 0; SODIUM 143 MEQ/L (136-147); TOTAL BILIRUBIN 0.6 MG/DL (0.0-1.0); UREA NITROGEN (BUN) 32 mg/dL (9-23)
[2016-08-25 07:35] VITALS: BP 126/60
[2016-08-25 11:25] VITALS: BP 128/60
[2016-08-25 16:15] VITALS: BP 113/53
[2016-08-25 20:59] VITALS: BP 125/64
[2016-08-25 23:48] VITALS: BP 123/56
[2016-08-26 04:30] VITALS: BP 115/56
[2016-08-26 06:40] LABS: HEMATOCRIT 28.4 % (36.0-46.0); MCH 27.6 PG (29.0-34.0); MCHC 31.7 G/DL (30.0-36.0); MCV 87.1 FL (83-99); PLATELET COUNT 142 K/uL (156-360); RBC DIS.WIDTH-CV 16.7 % (11.8-14.6); RBC DIS.WIDTH-SD 52.8 % (39-53); RED BLOOD COUNT 3.26 M/uL (3.80-5.20); WHITE BLOOD COUNT 5.7 K/uL (4.1-10.2)
[2016-08-26 07:02] LABS: ANION GAP 12 MEQ/L (2-14); CHLORIDE 107 MEQ/L (99-109); GFR ESTIMATE (CALCULATED) 31 mL/min/; GLUCOSE 92 mg/dL (70-99); POTASSIUM 3.3 MEQ/L (3.7-5.4); SAMPLE HEMOLYSIS CHECK 0; SAMPLE ICTERIC CHECK 0; SAMPLE LIPEMIA CHECK 0; SODIUM 142 MEQ/L (136-147); UREA NITROGEN (BUN) 28 mg/dL (9-23)
[2016-08-26 07:03] VITALS: BP 109/55
[2016-08-26 11:19] VITALS: BP 108/55
[2016-08-26 15:25] VITALS: BP 107/53
[2016-08-26 19:25] VITALS: BP 99/51
[2016-08-26 23:59] VITALS: BP 99/41
[2016-08-27] VITALS (9 sets, daily range): BP systolic 87–126; BP diastolic 47–66
[2016-08-27 09:35] LABS: ANION GAP 10 MEQ/L (2-14); CHLORIDE 105 MEQ/L (99-109); GFR ESTIMATE (CALCULATED) 33 mL/min/; GLUCOSE 94 mg/dL (70-99); POTASSIUM 3.7 MEQ/L (3.7-5.4); SAMPLE HEMOLYSIS CHECK 0; SAMPLE ICTERIC CHECK 0; SAMPLE LIPEMIA CHECK 0; SODIUM 140 MEQ/L (136-147); UREA NITROGEN (BUN) 25 mg/dL (9-23)
[2016-08-28 03:45] VITALS: BP 90/48
[2016-08-28 07:17] VITALS: BP 108/50
[2016-08-28] MEDS ORDERED: VALTREX1000 MG PO (09:54)
[2016-08-28 10:40] VITALS: BP 98/48
[2016-08-28] MEDS ORDERED: BUMETANIDE0.5 MG PO (11:51)
[2016-08-28] MEDS ORDERED: K-DUR20 MEQ PO (11:51)
== END 2016-08-28 15:10 | disposition home health service (06) | DRG 683 ==
LOC: EME 17:04 → 2EAST 21:58 → EDOF 21:58 → 2EAST 23:19
PROVIDERS: Emergency Medicine; Family Medicine; Hospitalist
DX: N17.9 Acute kidney failure, unspecified (principal); E87.2 Acidosis; K76.6 Portal hypertension; Z68.41 Body mass index [BMI] 40.0-44.9, adult; I48.0 Paroxysmal atrial fibrillation; J44.9 Chronic obstructive pulmonary disease, unspecified; B02.9 Zoster without complications; K72.90 Hepatic failure, unspecified without coma; E11.22 Type 2 diabetes mellitus with diabetic chronic kidney disease; K74.60 Unspecified cirrhosis of liver; N28.1 Cyst of kidney, acquired; E87.6 Hypokalemia; I89.0 Lymphedema, not elsewhere classified; N18.3 Chronic kidney disease, stage 3 (moderate); E78.5 Hyperlipidemia, unspecified; I12.9 Hypertensive chronic kidney disease with stage 1 through stage 4 chronic kidney disease, or unspecified chronic kidney disease; E66.9 Obesity, unspecified; M19.90 Unspecified osteoarthritis, unspecified site; D63.1 Anemia in chronic kidney disease; I87.8 Other specified disorders of veins; K21.9 Gastro-esophageal reflux disease without esophagitis; Z96.653 Presence of artificial knee joint, bilateral; Z86.73 Personal history of transient ischemic attack (TIA), and cerebral infarction without residual deficits; Z90.49 Acquired absence of other specified parts of digestive tract
CPT/HCPCS: 74176; 80048; 80053; 80076; 81003; 82140; 83605; 83690; 83735; 85027; 87040; 93005; 94640; 94640 76; 99202; 99281; 99285; J0780; J1200; J1644; J2270; J2405; J2543; J7030; J7050

== ENCOUNTER 2016-09-15 13:11 | Inpatient (IN) | payer OTHER ==
[~2016-09-15] VITALS: Ht 152.4 cm; Wt 95.7 kg
[~2016-09-15 13:11] MED LIST changes: +BUMETANIDE0.5 MG PO; +VALTREX1000 MG PO
[2016-09-15 14:11] LABS: HEMATOCRIT 36.6 % (36.0-46.0); MCH 28.6 PG (29.0-34.0); MCV 89.5 FL (83-99); MEAN PLAT.VOLUME 10.5 uM^3 (9.5-12.4); PLATELET COUNT 216 K/uL (156-360); RBC DIS.WIDTH-CV 18.5 % (11.8-14.6); RBC DIS.WIDTH-SD 57.8 % (39-53); RED BLOOD COUNT 4.09 M/uL (3.80-5.20); WHITE BLOOD COUNT 13.4 K/uL (4.1-10.2)
[2016-09-15 14:16] LABS: CHLORIDE 103 mEq/L (99-109); POTASSIUM 3.8 mEq/L (3.7-5.4); SODIUM 140 mEq/L (136-147)
[2016-09-15 14:18] LABS: GLUCOSE 172 mg/dL (70-99)
[2016-09-15 14:20] LABS: ANION GAP 16 MEQ/L (2-14); TOTAL BILIRUBIN 1.1 mg/dL (0.0-1.0)
[2016-09-15 14:22] LABS: ALKALINE PHOSPHATASE 146 IU/L (3-129); GFR ESTIMATE (CALCULATED) 33 mL/min/
[2016-09-15 14:23] LABS: UREA NITROGEN (BUN) 23 mg/dL (9-23)
[2016-09-15 16:10] LABS: LIPASE 16 U/L (1.0-51.0)
[2016-09-15 17:23] LABS: INFLUENZA A VIRAL ANTIGEN NEGATIVE; INFLUENZA B VIRAL ANTIGEN NEGATIVE
[2016-09-15 17:35] LABS: ADD MIUA? NO; BILIRUBIN NEGATIVE; BLOOD NEGATIVE; COLOR YELLOW ((YELLOW)); GLUCOSE (STRIP) NEGATIVE; KETONES NEGATIVE; LEUKOCYTES NEGATIVE; NITRITE NEGATIVE; PROTEIN (STRIP) NEGATIVE; SPECIFIC GRAVITY 1.009 (1.000-1.030); UCUL ADDED? NO; UROBILINOGEN 0.2 MG/DL (0.2-1.0)
[2016-09-15] MEDS ORDERED: DIGITEK125 MC2 PO (20:18)
[2016-09-15] MEDS ORDERED: BUMEX1 MG PO (20:20)
[2016-09-16 00:40] VITALS: BP 109/51
[2016-09-16 01:42] LABS: TROP-I INTERPRETATION NEGATIVE; TROPONIN-I 0.05 ng/mL (0.0-0.30)
[2016-09-16 04:24] VITALS: BP 113/55
[2016-09-16 06:48] LABS: EOSINOPHIL (%) 0 % (0-5); HEMATOCRIT 27.6 % (36.0-46.0); IMMATURE GRANULOCYTE (%) 0.7 % (0.0-0.7); IMMATURE GRANULOCYTE COUNT 0.1 K/uL; INSTRUMENT ABS NEUTROPHIL CT 17.4 K/uL; LYMPHOCYTE COUNT 0.6 K/uL (1.0-2.8); MCHC 32.2 G/DL (30.0-36.0); MCV 89.9 FL (83-99); MONOCYTE (%) 3.5 % (3-12); MONOCYTE COUNT 0.7 K/uL (0-0.8); NEUTROPHIL (%) 92.8 % (45-76); NEUTROPHIL COUNT 17.4 K/uL (1.8-6.4); RBC DIS.WIDTH-CV 18.8 % (11.8-14.6); RBC DIS.WIDTH-SD 59.7 % (39-53)
[2016-09-16 06:50] LABS: RED BLOOD COUNT 3.07 M/uL (3.80-5.20); WHITE BLOOD COUNT 18.8 K/uL (4.1-10.2)
[2016-09-16 07:06] LABS: ANION GAP 16 MEQ/L (2-14); CHLORIDE 105 MEQ/L (99-109); GFR ESTIMATE (CALCULATED) 29 mL/min/; GLUCOSE 161 mg/dL (70-99); SAMPLE HEMOLYSIS CHECK 0; SAMPLE ICTERIC CHECK 0; SAMPLE LIPEMIA CHECK 0; SODIUM 141 MEQ/L (136-147); UREA NITROGEN (BUN) 25 mg/dL (9-23)
[2016-09-16 07:07] LABS: MEAN PLAT.VOLUME 11.5 uM^3 (9.5-12.4); PLAT.SUFFICIENCY DECREASED
[2016-09-16 07:08] LABS: PLATELET COUNT 128 K/uL (156-360)
[2016-09-16 07:14] LABS: TROP-I INTERPRETATION NEGATIVE; TROPONIN-I 0.06 ng/mL (0.0-0.30)
[2016-09-16 07:30] VITALS: BP 118/51
[2016-09-16 13:01] VITALS: BP 116/50
[2016-09-16 13:58] LABS: TROP-I INTERPRETATION NEGATIVE; TROPONIN-I 0.06 ng/mL (0.0-0.30)
[2016-09-16 14:17] LABS: INTERNAL CONTROL VALID? YES
[2016-09-16 14:25] LABS: C DIFF TOXIN POSITIVE (NEGATIVE)
[2016-09-16 14:26] LABS: PROBE CHECK PASS
[2016-09-16 17:00] LABS: BASE EXCESS 0.9 mEq/L (-3 to +3); BICARBONATE 25.2 mEq/L (22-26); CARBOXY HGB 1.7 % (0-5); METHEMOGLOBIN 1.5 % (0-1.5); PCO2 38 mm Hg (35-45); PO2 83 mm Hg (80-100); pH 7.43 (7.35-7.45)
[2016-09-16 17:01] LABS: COMMENTS - BLOOD GASES A+C+; FI02 0.21 %; SITE RR; TOTAL RESP RATE 16 resp/min
[2016-09-16 19:45] LABS: POINT-OF-CARE METER ID UU14174225
[2016-09-16 19:46] VITALS: BP 117/53
[2016-09-17 04:00] VITALS: BP 114/51
[2016-09-17 07:10] LABS: MCHC 32.6 G/DL (30.0-36.0); MCV 89.1 FL (83-99); MEAN PLAT.VOLUME 11.5 uM^3 (9.5-12.4); PLATELET COUNT 120 K/uL (156-360); RBC DIS.WIDTH-CV 18.9 % (11.8-14.6); RED BLOOD COUNT 3.03 M/uL (3.80-5.20)
[2016-09-17 07:21] LABS: ANION GAP 12 MEQ/L (2-14); CHLORIDE 107 MEQ/L (99-109); GFR ESTIMATE (CALCULATED) 27 mL/min/; POTASSIUM 3.8 MEQ/L (3.7-5.4); SAMPLE HEMOLYSIS CHECK 0; SAMPLE ICTERIC CHECK 0; SAMPLE LIPEMIA CHECK 0; SODIUM 142 MEQ/L (136-147); UREA NITROGEN (BUN) 34 mg/dL (9-23)
[2016-09-17 07:23] LABS: GLUCOSE 97 mg/dL (70-99)
[2016-09-17 08:01] VITALS: BP 120/60
[2016-09-17 11:36] VITALS: BP 120/62
[2016-09-17 12:08] LABS: POINT-OF-CARE METER ID UU14174225
[2016-09-17 15:52] VITALS: BP 124/60
[2016-09-17 19:49] VITALS: BP 117/58
[2016-09-18] VITALS (7 sets, daily range): BP systolic 116–131; BP diastolic 53–62
[2016-09-18 05:53] LABS: POINT-OF-CARE METER ID UU14174225
[2016-09-18 06:03] LABS: MCHC 31.4 G/DL (30.0-36.0); MCV 89.2 FL (83-99); MEAN PLAT.VOLUME 11.7 uM^3 (9.5-12.4); PLATELET COUNT 136 K/uL (156-360); RBC DIS.WIDTH-CV 19.4 % (11.8-14.6); RBC DIS.WIDTH-SD 61.7 % (39-53); RED BLOOD COUNT 3.14 M/uL (3.80-5.20); WHITE BLOOD COUNT 9.7 K/uL (4.1-10.2)
[2016-09-18 06:27] LABS: ANION GAP 12 MEQ/L (2-14); CHLORIDE 107 MEQ/L (99-109); GFR ESTIMATE (CALCULATED) 29 mL/min/; GLUCOSE 79 mg/dL (70-99); POTASSIUM 3.6 MEQ/L (3.7-5.4); SAMPLE HEMOLYSIS CHECK 0; SAMPLE ICTERIC CHECK 0; SAMPLE LIPEMIA CHECK 0; SODIUM 142 MEQ/L (136-147); UREA NITROGEN (BUN) 35 mg/dL (9-23)
[2016-09-19 03:51] VITALS: BP 121/54
[2016-09-19 07:04] LABS: HEMATOCRIT 28.8 % (36.0-46.0); MCH 28.9 PG (29.0-34.0); MCHC 31.9 G/DL (30.0-36.0); MCV 90.6 FL (83-99); MEAN PLAT.VOLUME 10.6 uM^3 (9.5-12.4); PLATELET COUNT 144 K/uL (156-360); RBC DIS.WIDTH-SD 60.9 % (39-53); RED BLOOD COUNT 3.18 M/uL (3.80-5.20); WHITE BLOOD COUNT 8.3 K/uL (4.1-10.2)
[2016-09-19 07:32] LABS: ANION GAP 10 MEQ/L (2-14); CHLORIDE 107 MEQ/L (99-109); GFR ESTIMATE (CALCULATED) 39 mL/min/; GLUCOSE 96 mg/dL (70-99); MAGNESIUM 1.1 mg/dl (1.3-2.7); POTASSIUM 3.6 MEQ/L (3.7-5.4); SAMPLE HEMOLYSIS CHECK 0; SAMPLE ICTERIC CHECK 0; SAMPLE LIPEMIA CHECK 0; SODIUM 140 MEQ/L (136-147); UREA NITROGEN (BUN) 31 mg/dL (9-23)
[2016-09-19 07:51] VITALS: BP 131/68
[2016-09-19 11:43] VITALS: BP 126/65
[2016-09-19 16:16] VITALS: BP 130/64
[2016-09-19 19:58] VITALS: BP 139/67
[2016-09-20] VITALS: BP 120/62
[2016-09-20 03:55] VITALS: BP 114/65
[2016-09-20 07:40] VITALS: BP 118/54
[2016-09-20 07:40] LABS: EOSINOPHIL COUNT 0.5 K/uL (0-0.3); HEMATOCRIT 29.4 % (36.0-46.0); IMMATURE GRANULOCYTE (%) 1.1 % (0.0-0.7); IMMATURE GRANULOCYTE COUNT 0.1 K/uL; INSTRUMENT ABS NEUTROPHIL CT 6.8 K/uL; LYMPHOCYTE COUNT 0.8 K/uL (1.0-2.8); MCH 28.1 PG (29.0-34.0); MCHC 31.3 G/DL (30.0-36.0); MCV 89.9 FL (83-99); MEAN PLAT.VOLUME 11.2 uM^3 (9.5-12.4); MONOCYTE (%) 9.4 % (3-12); MONOCYTE COUNT 0.9 K/uL (0-0.8); NEUTROPHIL (%) 75.7 % (45-76); NEUTROPHIL COUNT 6.8 K/uL (1.8-6.4); PLATELET COUNT 146 K/uL (156-360); RBC DIS.WIDTH-CV 18.9 % (11.8-14.6); RED BLOOD COUNT 3.27 M/uL (3.80-5.20)
[2016-09-20 08:10] LABS: ANION GAP 9 MEQ/L (2-14); CHLORIDE 107 MEQ/L (99-109); GFR ESTIMATE (CALCULATED) 46 mL/min/; GLUCOSE 102 mg/dL (70-99); POTASSIUM 3.6 MEQ/L (3.7-5.4); SAMPLE HEMOLYSIS CHECK 0; SAMPLE ICTERIC CHECK 0; SAMPLE LIPEMIA CHECK 0; SODIUM 137 MEQ/L (136-147); UREA NITROGEN (BUN) 25 mg/dL (9-23)
[2016-09-20 11:26] VITALS: BP 85/56
[2016-09-20 15:36] VITALS: BP 108/56
[2016-09-20 17:41] LABS: POINT-OF-CARE METER ID UU14174225
[2016-09-20 19:38] VITALS: BP 125/62
[2016-09-21] VITALS (7 sets, daily range): BP systolic 103–125; BP diastolic 54–65
[2016-09-21 07:24] LABS: ANION GAP 10 MEQ/L (2-14); CHLORIDE 104 MEQ/L (99-109); GFR ESTIMATE (CALCULATED) 42 mL/min/; GLUCOSE 104 mg/dL (70-99); POTASSIUM 3.7 MEQ/L (3.7-5.4); SAMPLE HEMOLYSIS CHECK 0; SAMPLE ICTERIC CHECK 0; SAMPLE LIPEMIA CHECK 0; SODIUM 134 MEQ/L (136-147); UREA NITROGEN (BUN) 25 mg/dL (9-23)
[2016-09-22 04:10] VITALS: BP 110/62
[2016-09-22 07:53] VITALS: BP 109/58
[2016-09-22 11:12] VITALS: BP 123/57
[2016-09-22] MEDS ORDERED: PEN-VEE K,VEET500 MG PO (12:03)
[2016-09-22] MEDS ORDERED: VANCOCIN 250 M250 MG PO (12:27)
== END 2016-09-22 15:24 | DRG 872 ==
LOC: EME 13:11 → EDOF 22:47 → 5SOUTH 22:47
PROVIDERS: Emergency Medicine; Hospitalist; Internal Medicine; Internal Medicine Gastroenterology; Nurse Practitioner Adult Health
DX: A41.89 Other specified sepsis (principal); R65.20 Severe sepsis without septic shock; A04.7 Enterocolitis due to Clostridium difficile; I13.0 Hypertensive heart and chronic kidney disease with heart failure and stage 1 through stage 4 chronic kidney disease, or unspecified chronic kidney disease; I50.32 Chronic diastolic (congestive) heart failure; N18.3 Chronic kidney disease, stage 3 (moderate); K74.60 Unspecified cirrhosis of liver; I48.2 Chronic atrial fibrillation; Z86.73 Personal history of transient ischemic attack (TIA), and cerebral infarction without residual deficits; E78.5 Hyperlipidemia, unspecified; Z96.653 Presence of artificial knee joint, bilateral; E87.2 Acidosis; K76.6 Portal hypertension; J44.9 Chronic obstructive pulmonary disease, unspecified; J45.909 Unspecified asthma, uncomplicated; E11.22 Type 2 diabetes mellitus with diabetic chronic kidney disease; K21.9 Gastro-esophageal reflux disease without esophagitis; E66.01 Morbid (severe) obesity due to excess calories; Z68.41 Body mass index [BMI] 40.0-44.9, adult; B95.1 Streptococcus, group B, as the cause of diseases classified elsewhere; K75.81 Nonalcoholic steatohepatitis (NASH); E88.09 Other disorders of plasma-protein metabolism, not elsewhere classified; D64.9 Anemia, unspecified; E87.6 Hypokalemia; E83.51 Hypocalcemia
CPT/HCPCS: 36600; 71010; 74176; 80048; 80053; 80162; 81003; 82272; 82803; 82948; 83605; 83690; 83735; 84100; 84484; 85025; 85027; 87040; 87077; 87186; 87493; 87502; 87801; 93005; 93971; 97530 GO; 99281; 99285; C9113; J1170; J1644; J1956; J2405; J2540; J2765; J3475; J7030; J7040; J7050; S0030

== ENCOUNTER → 2016-10-15 | Outpatient (CLI) | payer OTHER ==
[~2016-10-15] MED LIST changes: +DIGITEK125 MC2 PO; +PEN-VEE K,VEET500 MG PO; +VANCOCIN 250 M250 MG PO
== END | disposition home or self-care (01) ==
LOC: RAD 08:29
DX: K74.60 Unspecified cirrhosis of liver (principal); R93.5 Abnormal findings on diagnostic imaging of other abdominal regions, including retroperitoneum
CPT/HCPCS: 74176

== ENCOUNTER → 2016-11-13 | Outpatient (CLI) | payer OTHER | LOC: RAD 11:00 → MRI 12:49 → RAD 13:30 → MRI 13:30 | DX: M51.36 Other intervertebral disc degeneration, lumbar region (principal); M46.86 Other specified inflammatory spondylopathies, lumbar region; M48.06 Spinal stenosis, lumbar region; M51.26 Other intervertebral disc displacement, lumbar region; M25.78 Osteophyte, vertebrae; R90.89 Other abnormal findings on diagnostic imaging of central nervous system | CPT/HCPCS: 72158 ==

== ENCOUNTER 2016-11-27 18:10 | Inpatient (IN) | payer OTHER ==
[~2016-11-27] VITALS: Ht 152.4 cm; Wt 81.2 kg
[2016-11-27 19:42] LABS: CHLORIDE 115 mEq/L (99-109); SODIUM 135 mEq/L (136-147)
[2016-11-27 19:43] LABS: GLUCOSE 134 mg/dL (70-99)
[2016-11-27 19:45] LABS: ANION GAP 7 MEQ/L (2-14)
[2016-11-27 19:47] LABS: GFR ESTIMATE (CALCULATED) 46 mL/min/
[2016-11-27 19:48] LABS: UREA NITROGEN (BUN) 21 mg/dL (9-23)
[2016-11-27 19:50] LABS: POTASSIUM 6.9 mEq/L (3.7-5.4)
[2016-11-27] MEDS ORDERED: ALLOPURINOL300 MG PO (20:50)
[2016-11-27] MEDS ORDERED: COLESTID1 GM PO (20:51)
[2016-11-27] MEDS ORDERED: DULCOLAX10 MG PR (20:51)
[2016-11-27] MEDS ORDERED: FLEET ENEMA-AD118 ML PR (20:51)
[2016-11-27] MEDS ORDERED: HYDROXYZINE HCL25 MG PO (20:52)
[2016-11-27] MEDS ORDERED: NIZORAL 2% CREA15 GM TP (20:52)
[2016-11-27] MEDS ORDERED: DIGESTIVE PROB1 EAC1 PO (20:53)
[2016-11-27] MEDS ORDERED: PHILLIPS'400 MG/5 M PO (20:53)
[2016-11-27] MEDS ORDERED: OMEPRAZOLE20 MG PO (20:53)
[2016-11-27] MEDS ORDERED: ZOLOFT25 MG PO (20:54)
[2016-11-27] MEDS ORDERED: ULTRAM50 MG PO (20:54)
[2016-11-27] MEDS ORDERED: DIAPER RASH57 GM TP (20:55)
[2016-11-27] MEDS ORDERED: VANCOMYCIN HCL125 MG PO (20:56)
[2016-11-27 20:58] LABS: DIGOXIN 1.3 ng/mL (0.8-2.0)
[2016-11-28 01:00] VITALS: BP 128/58
[2016-11-28 01:16] LABS: POINT-OF-CARE METER ID UU14174216
[2016-11-28 04:19] VITALS: BP 124/59
[2016-11-28 07:37] VITALS: BP 115/59
[2016-11-28 08:04] LABS: HEMATOCRIT 29.1 % (36.0-46.0); MCH 30.4 PG (29.0-34.0); MCHC 31.3 G/DL (30.0-36.0); MCV 97.3 FL (83-99); MEAN PLAT.VOLUME 11.2 uM^3 (9.5-12.4); PLATELET COUNT 173 K/uL (156-360); RBC DIS.WIDTH-CV 19.4 % (11.8-14.6); RBC DIS.WIDTH-SD 69.2 % (39-53); RED BLOOD COUNT 2.99 M/uL (3.80-5.20); WHITE BLOOD COUNT 9.2 K/uL (4.1-10.2)
[2016-11-28 08:27] LABS: ANION GAP 7 MEQ/L (2-14); CHLORIDE 114 MEQ/L (99-109); GFR ESTIMATE (CALCULATED) 57 mL/min/; GLUCOSE 118 mg/dL (70-99); POTASSIUM 5.8 MEQ/L (3.7-5.4); SAMPLE HEMOLYSIS CHECK 0; SAMPLE ICTERIC CHECK 0; SAMPLE LIPEMIA CHECK 0; SODIUM 138 MEQ/L (136-147); UREA NITROGEN (BUN) 19 mg/dL (9-23)
[2016-11-28 12:00] VITALS: BP 121/57
[2016-11-28 12:40] LABS: C DIFF TOXIN NEGATIVE (NEGATIVE)
[2016-11-28 12:42] LABS: PROBE CHECK PASS; SPECIMEN PROCESSING CONTROL PASS
[2016-11-28 16:50] VITALS: BP 141/65
[2016-11-28 19:50] VITALS: BP 121/73
[2016-11-29] VITALS (7 sets, daily range): BP systolic 95–119; BP diastolic 47–58
[2016-11-29 07:31] LABS: EOSINOPHIL (%) 7.1 % (0-5); EOSINOPHIL COUNT 0.6 K/uL (0-0.3); HEMATOCRIT 27.7 % (36.0-46.0); IMMATURE GRANULOCYTE (%) 0.4 % (0.0-0.7); LYMPHOCYTE COUNT 1.5 K/uL (1.0-2.8); MCH 31.1 PG (29.0-34.0); MCHC 32.1 G/DL (30.0-36.0); MCV 96.9 FL (83-99); MEAN PLAT.VOLUME 11.4 uM^3 (9.5-12.4); MONOCYTE (%) 9.2 % (3-12); MONOCYTE COUNT 0.7 K/uL (0-0.8); PLATELET COUNT 145 K/uL (156-360); RBC DIS.WIDTH-CV 19.4 % (11.8-14.6); RBC DIS.WIDTH-SD 68.3 % (39-53); RED BLOOD COUNT 2.86 M/uL (3.80-5.20); WHITE BLOOD COUNT 7.9 K/uL (4.1-10.2)
[2016-11-29 08:23] LABS: ALKALINE PHOSPHATASE 121 IU/L (3-129); ANION GAP 5 MEQ/L (2-14); CHLORIDE 106 MEQ/L (99-109); GFR ESTIMATE (CALCULATED) 51 mL/min/; GLUCOSE 98 mg/dL (70-99); SAMPLE HEMOLYSIS CHECK 0; SAMPLE ICTERIC CHECK 0; SAMPLE LIPEMIA CHECK 0; SODIUM 132 MEQ/L (136-147); TOTAL BILIRUBIN 0.9 MG/DL (0.0-1.0); UREA NITROGEN (BUN) 19 mg/dL (9-23)
[2016-11-29 08:24] LABS: POTASSIUM 4.3 MEQ/L (3.7-5.4)
[2016-11-29 11:18] LABS: IMM.RETIC FRACTION 19.1 % (3-19); RETIC HGB EQUIVALENT 35.5 (28-36); RETICULOCYTE COUNT 2.5 % (0.5-1.8)
[2016-11-29 11:41] LABS: IRON 50 MCG/DL (35-150); MAGNESIUM 1.2 mg/dl (1.3-2.7)
[2016-11-29 11:54] LABS: FERRITIN 451 NG/ML (10-291)
[2016-11-29 16:23] LABS: POINT-OF-CARE METER ID UU14174216
[2016-11-29 21:19] LABS: POINT-OF-CARE METER ID UU13113698
[2016-11-30 04:38] VITALS: BP 122/56
[2016-11-30 06:57] LABS: EOSINOPHIL (%) 5.4 % (0-5); EOSINOPHIL COUNT 0.4 K/uL (0-0.3); HEMATOCRIT 26.4 % (36.0-46.0); IMMATURE GRANULOCYTE (%) 0.4 % (0.0-0.7); INSTRUMENT ABS NEUTROPHIL CT 5.4 K/uL; LYMPHOCYTE COUNT 1.3 K/uL (1.0-2.8); MCH 30.4 PG (29.0-34.0); MCHC 31.4 G/DL (30.0-36.0); MCV 96.7 FL (83-99); MEAN PLAT.VOLUME 11.2 uM^3 (9.5-12.4); MONOCYTE (%) 9.2 % (3-12); MONOCYTE COUNT 0.7 K/uL (0-0.8); NEUTROPHIL COUNT 5.4 K/uL (1.8-6.4); PLATELET COUNT 141 K/uL (156-360); RBC DIS.WIDTH-CV 19.1 % (11.8-14.6); RED BLOOD COUNT 2.73 M/uL (3.80-5.20); WHITE BLOOD COUNT 7.9 K/uL (4.1-10.2)
[2016-11-30 07:00] LABS: ABSOLUTE RETICULOCYTE CT. 0.1 M/uL (0.02-0.08); IMM.RETIC FRACTION 22.7 % (3-19); RETIC HGB EQUIVALENT 34.7 (28-36); RETICULOCYTE COUNT 2.4 % (0.5-1.8)
[2016-11-30 07:27] VITALS: BP 101/48
[2016-11-30 07:34] LABS: ANION GAP 6 MEQ/L (2-14); CHLORIDE 109 MEQ/L (99-109); GFR ESTIMATE (CALCULATED) 46 mL/min/; GLUCOSE 112 mg/dL (70-99); POTASSIUM 4.5 MEQ/L (3.7-5.4); SAMPLE HEMOLYSIS CHECK 0; SAMPLE ICTERIC CHECK 0; SAMPLE LIPEMIA CHECK 0; SODIUM 136 MEQ/L (136-147); UREA NITROGEN (BUN) 22 mg/dL (9-23)
[2016-11-30 07:39] LABS: MAGNESIUM 1.4 mg/dl (1.3-2.7)
[2016-11-30 07:46] LABS: POINT-OF-CARE METER ID UU13113698; POINT-OF-CARE USER ID NUTSLF44
[2016-11-30 08:39] LABS: FERRITIN 343 NG/ML (10-291); IRON 33 MCG/DL (35-150)
[2016-11-30 11:36] LABS: POINT-OF-CARE METER ID UU13113698; POINT-OF-CARE USER ID NUTSLF44
[2016-11-30 12:24] VITALS: BP 114/57
[2016-11-30 16:10] VITALS: BP 130/58
[2016-11-30 16:25] LABS: POINT-OF-CARE METER ID UU13113698; POINT-OF-CARE USER ID NUTSLF44
[2016-11-30 19:30] VITALS: BP 116/56
[2016-12-01 01:24] VITALS: BP 117/57
[2016-12-01 04:22] VITALS: BP 113/53
[2016-12-01 06:21] LABS: EOSINOPHIL (%) 4.4 % (0-5); EOSINOPHIL COUNT 0.4 K/uL (0-0.3); HEMATOCRIT 25.8 % (36.0-46.0); IMMATURE GRANULOCYTE (%) 0.3 % (0.0-0.7); INSTRUMENT ABS NEUTROPHIL CT 6.9 K/uL; LYMPHOCYTE COUNT 1.3 K/uL (1.0-2.8); MCH 30.4 PG (29.0-34.0); MCHC 31.8 G/DL (30.0-36.0); MCV 95.6 FL (83-99); MEAN PLAT.VOLUME 11.7 uM^3 (9.5-12.4); MONOCYTE (%) 9.1 % (3-12); MONOCYTE COUNT 0.9 K/uL (0-0.8); NEUTROPHIL (%) 72.8 % (45-76); NEUTROPHIL COUNT 6.9 K/uL (1.8-6.4); PLATELET COUNT 152 K/uL (156-360); RBC DIS.WIDTH-CV 19.2 % (11.8-14.6); RBC DIS.WIDTH-SD 66.4 % (39-53); WHITE BLOOD COUNT 9.5 K/uL (4.1-10.2)
[2016-12-01 06:58] LABS: ANION GAP 8 MEQ/L (2-14); CHLORIDE 106 MEQ/L (99-109); GFR ESTIMATE (CALCULATED) 39 mL/min/; GLUCOSE 113 mg/dL (70-99); POTASSIUM 4.1 MEQ/L (3.7-5.4); SAMPLE HEMOLYSIS CHECK 0; SAMPLE ICTERIC CHECK 0; SAMPLE LIPEMIA CHECK 0; SODIUM 133 MEQ/L (136-147); UREA NITROGEN (BUN) 24 mg/dL (9-23)
[2016-12-01 07:11] VITALS: BP 111/57
[2016-12-01 08:18] LABS: POINT-OF-CARE METER ID UU13113698; POINT-OF-CARE USER ID NUTSLF44
[2016-12-01 11:43] LABS: POINT-OF-CARE METER ID UU14174216; POINT-OF-CARE USER ID NUTSLF44
[2016-12-01 12:13] VITALS: BP 102/54
[2016-12-01 16:29] VITALS: BP 115/57
[2016-12-01 16:31] LABS: POINT-OF-CARE METER ID UU14174216; POINT-OF-CARE USER ID NUTSLF44
[2016-12-01 19:40] VITALS: BP 95/50
[2016-12-01 21:09] LABS: POINT-OF-CARE METER ID UU13113698
[2016-12-02] VITALS (7 sets, daily range): BP systolic 107–119; BP diastolic 52–62
[2016-12-02 06:35] LABS: ANION GAP 9 MEQ/L (2-14); CHLORIDE 104 MEQ/L (99-109); GFR ESTIMATE (CALCULATED) 46 mL/min/; GLUCOSE 114 mg/dL (70-99); MAGNESIUM 1.4 mg/dl (1.3-2.7); POTASSIUM 3.8 MEQ/L (3.7-5.4); SAMPLE HEMOLYSIS CHECK 0; SAMPLE ICTERIC CHECK 0; SAMPLE LIPEMIA CHECK 0; SODIUM 133 MEQ/L (136-147); UREA NITROGEN (BUN) 28 mg/dL (9-23)
[2016-12-02 07:59] LABS: POINT-OF-CARE METER ID UU13113781
[2016-12-02 11:44] LABS: POINT-OF-CARE METER ID UU13113781
[2016-12-03 03:15] VITALS: BP 115/55
[2016-12-03 05:59] LABS: ANION GAP 9 MEQ/L (2-14); CHLORIDE 102 MEQ/L (99-109); GFR ESTIMATE (CALCULATED) 46 mL/min/; GLUCOSE 114 mg/dL (70-99); MAGNESIUM 1.3 mg/dl (1.3-2.7); POTASSIUM 3.4 MEQ/L (3.7-5.4); SAMPLE HEMOLYSIS CHECK 0; SAMPLE ICTERIC CHECK 0; SAMPLE LIPEMIA CHECK 0; SODIUM 133 MEQ/L (136-147); UREA NITROGEN (BUN) 32 mg/dL (9-23)
[2016-12-03 07:00] VITALS: BP 109/54
[2016-12-03 12:06] VITALS: BP 102/51
[2016-12-03 17:12] VITALS: BP 109/51
[2016-12-03 19:15] VITALS: BP 93/47
[2016-12-03 21:43] LABS: POINT-OF-CARE METER ID UU13113698
[2016-12-03 23:00] VITALS: BP 102/53
[2016-12-04 03:00] VITALS: BP 96/50
[2016-12-04 06:44] LABS: ANION GAP 11 MEQ/L (2-14); CHLORIDE 100 MEQ/L (99-109); GFR ESTIMATE (CALCULATED) 42 mL/min/; GLUCOSE 129 mg/dL (70-99); MAGNESIUM 1.4 mg/dl (1.3-2.7); POTASSIUM 3.9 MEQ/L (3.7-5.4); SAMPLE HEMOLYSIS CHECK 1; SAMPLE ICTERIC CHECK 0; SAMPLE LIPEMIA CHECK 0; SODIUM 133 MEQ/L (136-147); UREA NITROGEN (BUN) 38 mg/dL (9-23)
[2016-12-04 08:17] VITALS: BP 99/55
[2016-12-04 11:11] LABS: POINT-OF-CARE METER ID UU13113781
[2016-12-04] MEDS ORDERED: K-DUR20 MEQ PO (12:14)
[2016-12-04] MEDS ORDERED: METOLAZONE5 MG PO (12:14)
[2016-12-04] MEDS ORDERED: FUROSEMIDE40 MG/5 ML PO (12:14)
[2016-12-04 12:37] VITALS: BP 118/56
== END 2016-12-04 16:04 | disposition home health service (06) | DRG 683 ==
LOC: EME 18:10 → EDOF 22:28 → 4EAST 22:28
PROVIDERS: Hospitalist; Internal Medicine; Internal Medicine Nephrology; Physician Assistant
DX: N17.9 Acute kidney failure, unspecified (principal); I85.00 Esophageal varices without bleeding; E87.2 Acidosis; L03.115 Cellulitis of right lower limb; L03.116 Cellulitis of left lower limb; I13.0 Hypertensive heart and chronic kidney disease with heart failure and stage 1 through stage 4 chronic kidney disease, or unspecified chronic kidney disease; I50.32 Chronic diastolic (congestive) heart failure; K76.6 Portal hypertension; I42.9 Cardiomyopathy, unspecified; J98.11 Atelectasis; E87.5 Hyperkalemia; E11.22 Type 2 diabetes mellitus with diabetic chronic kidney disease; J44.9 Chronic obstructive pulmonary disease, unspecified; K21.9 Gastro-esophageal reflux disease without esophagitis; N18.3 Chronic kidney disease, stage 3 (moderate); I48.0 Paroxysmal atrial fibrillation; I48.2 Chronic atrial fibrillation; E87.6 Hypokalemia; K74.69 Other cirrhosis of liver; Z83.3 Family history of diabetes mellitus; D64.9 Anemia, unspecified; E03.9 Hypothyroidism, unspecified; R16.1 Splenomegaly, not elsewhere classified; E78.00 Pure hypercholesterolemia, unspecified; E78.5 Hyperlipidemia, unspecified; E86.0 Dehydration; I89.0 Lymphedema, not elsewhere classified; M1A.9XX0 Chronic gout, unspecified, without tophus (tophi); T50.2X5A Adverse effect of carbonic-anhydrase inhibitors, benzothiadiazides and other diuretics, initial encounter; Z68.35 Body mass index [BMI] 35.0-35.9, adult; E86.9 Volume depletion, unspecified; Z74.01 Bed confinement status; Z79.01 Long term (current) use of anticoagulants; Z86.19 Personal history of other infectious and parasitic diseases; Z96.653 Presence of artificial knee joint, bilateral; Z86.73 Personal history of transient ischemic attack (TIA), and cerebral infarction without residual deficits; Z80.9 Family history of malignant neoplasm, unspecified
CPT/HCPCS: 71010; 80048; 80048 91; 80053; 80061; 80069; 80162; 82607; 82728; 82746; 82948; 83540; 83735; 83880; 84466; 85025; 85027; 85045; 87493; 93005; 94640; 94640 76; 97530 GO; 97530 GP; 99281; 99285; G0378; J0881; J1644; J1815; J1940; J2405; J3475; J7030; J7070

== ENCOUNTER 2016-12-08 14:46 | Emergency (ER) | payer OTHER ==
[~2016-12-08] VITALS: Ht 152.4 cm; Wt 79.6 kg
[~2016-12-08 14:46] MED LIST changes: +ALLOPURINOL300 MG PO; +COLESTID1 GM PO; +DIAPER RASH57 GM TP; +DIGESTIVE PROB1 EAC1 PO; +FUROSEMIDE40 MG/5 ML PO; +HYDROXYZINE HCL25 MG PO; +NIZORAL 2% CREA15 GM TP; +OMEPRAZOLE20 MG PO; +PHILLIPS'400 MG/5 M PO; +VANCOMYCIN HCL125 MG PO; +ZOLOFT25 MG PO
[2016-12-08 16:02] LABS: HEMATOCRIT 29.7 % (36.0-46.0); MCH 30.5 PG (29.0-34.0); MCHC 31.6 G/DL (30.0-36.0); MCV 96.4 FL (83-99); MEAN PLAT.VOLUME 11.5 uM^3 (9.5-12.4); RBC DIS.WIDTH-CV 20.6 % (11.8-14.6); RBC DIS.WIDTH-SD 69.8 % (39-53); RED BLOOD COUNT 3.08 M/uL (3.80-5.20); WHITE BLOOD COUNT 11.9 K/uL (4.1-10.2)
[2016-12-08 16:03] LABS: PLATELET COUNT 240 K/uL (156-360)
[2016-12-08 16:09] LABS: CHLORIDE 102 mEq/L (99-109); POTASSIUM 3.2 mEq/L (3.7-5.4); SODIUM 139 mEq/L (136-147)
[2016-12-08 16:10] LABS: GLUCOSE 213 mg/dL (70-99)
[2016-12-08 16:11] LABS: INTER. NORMALIZED RATIO 1.2; PROTHROMBIN TIME 12.1 (9.2-11.2); PTT 22.8 (25-32)
[2016-12-08 16:12] LABS: ANION GAP 14 MEQ/L (2-14)
[2016-12-08 16:14] LABS: GFR ESTIMATE (CALCULATED) 39 mL/min/
[2016-12-08 16:15] LABS: UREA NITROGEN (BUN) 44 mg/dL (9-23)
[2016-12-08 16:20] LABS: TROP-I INTERPRETATION NEGATIVE; TROPONIN-I 0.01 ng/mL (0.0-0.30)
[2016-12-08] MEDS ORDERED: AZITHROMYCIN250 MG1 PO (17:09)
[2016-12-08 18:43] VITALS: BP 113/50
== END 2016-12-08 18:45 | disposition home or self-care (01) ==
LOC: EME → EDBD 14:46 → EME 18:45
PROVIDERS: Emergency Medicine
DX: J40 Bronchitis, not specified as acute or chronic (principal); E86.0 Dehydration; R42 Dizziness and giddiness; I10 Essential (primary) hypertension; E78.5 Hyperlipidemia, unspecified; I50.9 Heart failure, unspecified; I48.91 Unspecified atrial fibrillation; Z86.73 Personal history of transient ischemic attack (TIA), and cerebral infarction without residual deficits; Z90.49 Acquired absence of other specified parts of digestive tract; Z90.710 Acquired absence of both cervix and uterus
CPT/HCPCS: 71020; 80048; 84484; 85027; 85610; 85730; 93005; 99281; 99284; J7030

== ENCOUNTER 2017-02-02 21:59 | Observation (INO) | payer OTHER ==
[~2017-02-02] VITALS: Ht 152.4 cm; Wt 86.0 kg
[~2017-02-02 21:59] MED LIST changes: +AZITHROMYCIN250 MG1 PO
[2017-02-02 22:54] LABS: HEMATOCRIT 31.4 % (36.0-46.0); MCH 30.3 PG (29.0-34.0); MCHC 31.2 G/DL (30.0-36.0); MCV 97.2 FL (83-99); MEAN PLAT.VOLUME 12.9 uM^3 (9.5-12.4); PLATELET COUNT 216 K/uL (156-360); RBC DIS.WIDTH-CV 18.9 % (11.8-14.6); RBC DIS.WIDTH-SD 65.5 % (39-53); RED BLOOD COUNT 3.23 M/uL (3.80-5.20); WHITE BLOOD COUNT 9.9 K/uL (4.1-10.2)
[2017-02-02 23:08] LABS: CHLORIDE 112 mEq/L (99-109); POTASSIUM 5.7 mEq/L (3.7-5.4); SODIUM 136 mEq/L (136-147)
[2017-02-02 23:10] LABS: GLUCOSE 186 mg/dL (70-99)
[2017-02-02 23:13] LABS: GFR ESTIMATE (CALCULATED) 26 mL/min/; TROP-I INTERPRETATION NEGATIVE; TROPONIN-I 0.01 ng/mL (0.0-0.30)
[2017-02-02 23:14] LABS: UREA NITROGEN (BUN) 47 mg/dL (9-23)
[2017-02-02 23:19] LABS: ANION GAP 11 MEQ/L (2-14)
[2017-02-03] MEDS ORDERED: METOLAZONE5 MG PO ×2 (04:27→10:51)
[2017-02-03] MEDS ORDERED: LASIX80 MG PO (10:49)
[2017-02-03] MEDS ORDERED: POTASSIUM CHLO20 ME2 PO (10:53)
[2017-02-03] MEDS ORDERED: ALDACTONE25 MG PO (10:54)
[2017-02-03 13:21] LABS: POINT-OF-CARE METER ID UU13113702; POINT-OF-CARE USER ID NUTJNM
[2017-02-03 14:02] LABS: TROP-I INTERPRETATION NEGATIVE; TROPONIN-I 0.01 ng/mL (0.0-0.30)
[2017-02-03 15:00] VITALS: BP 117/58
[2017-02-03 17:39] LABS: POINT-OF-CARE METER ID UU13113831
[2017-02-03 18:06] LABS: TROP-I INTERPRETATION NEGATIVE; TROPONIN-I < 0.01 ng/mL (0.0-0.30)
[2017-02-03 19:00] VITALS: BP 108/52
[2017-02-03 22:15] LABS: POINT-OF-CARE METER ID UU13113831
[2017-02-04 00:47] VITALS: BP 102/50
[2017-02-04 01:44] LABS: TROP-I INTERPRETATION NEGATIVE; TROPONIN-I 0.02 ng/mL (0.0-0.30)
[2017-02-04 04:07] VITALS: BP 113/58
[2017-02-04 06:35] LABS: BASOPHIL COUNT 0.1 K/uL (0-0.1); EOSINOPHIL (%) 3.9 % (0-5); EOSINOPHIL COUNT 0.3 K/uL (0-0.3); HEMATOCRIT 29.1 % (36.0-46.0); IMMATURE GRANULOCYTE (%) 0.3 % (0.0-0.7); INSTRUMENT ABS NEUTROPHIL CT 6.2 K/uL; LYMPHOCYTE COUNT 1.2 K/uL (1.0-2.8); MCH 30.6 PG (29.0-34.0); MCHC 30.9 G/DL (30.0-36.0); MEAN PLAT.VOLUME 13.3 uM^3 (9.5-12.4); MONOCYTE (%) 10.6 % (3-12); MONOCYTE COUNT 0.9 K/uL (0-0.8); NEUTROPHIL (%) 70.7 % (45-76); NEUTROPHIL COUNT 6.2 K/uL (1.8-6.4); PLATELET COUNT 194 K/uL (156-360); RBC DIS.WIDTH-CV 19.2 % (11.8-14.6); RBC DIS.WIDTH-SD 69.1 % (39-53); RED BLOOD COUNT 2.94 M/uL (3.80-5.20); WHITE BLOOD COUNT 8.8 K/uL (4.1-10.2)
[2017-02-04 07:00] LABS: ANION GAP 10 MEQ/L (2-14); CHLORIDE 112 MEQ/L (99-109); GFR ESTIMATE (CALCULATED) 27 mL/min/; POTASSIUM 4.6 MEQ/L (3.7-5.4); SAMPLE HEMOLYSIS CHECK 0; SAMPLE ICTERIC CHECK 0; SAMPLE LIPEMIA CHECK 0; SODIUM 138 MEQ/L (136-147); UREA NITROGEN (BUN) 48 mg/dL (9-23)
[2017-02-04 07:01] LABS: GLUCOSE 94 mg/dL (70-99)
[2017-02-04 07:25] VITALS: BP 115/53
[2017-02-04 08:59] LABS: POINT-OF-CARE METER ID UU13113831
[2017-02-04 12:21] VITALS: BP 161/71
[2017-02-04 13:07] LABS: POINT-OF-CARE METER ID UU13113831
[2017-02-04] MEDS ORDERED: ASPIR 8181 M1 PO (14:54)
== END 2017-02-04 18:43 | disposition home or self-care (01) ==
LOC: EME 21:59 → 5WEST 02-03 06:04 → EDOF 02-03 06:04 → ENRESERV 02-03 06:07 → 5WEST 02-03 14:40
PROVIDERS: Hospitalist; Internal Medicine
DX: R07.9 Chest pain, unspecified (principal); I48.91 Unspecified atrial fibrillation; I48.92 Unspecified atrial flutter; I13.0 Hypertensive heart and chronic kidney disease with heart failure and stage 1 through stage 4 chronic kidney disease, or unspecified chronic kidney disease; E11.22 Type 2 diabetes mellitus with diabetic chronic kidney disease; I50.32 Chronic diastolic (congestive) heart failure; N18.3 Chronic kidney disease, stage 3 (moderate); I89.0 Lymphedema, not elsewhere classified; K74.60 Unspecified cirrhosis of liver; K76.0 Fatty (change of) liver, not elsewhere classified; K76.6 Portal hypertension; R18.8 Other ascites; E66.9 Obesity, unspecified; E78.5 Hyperlipidemia, unspecified; G47.30 Sleep apnea, unspecified; I35.0 Nonrheumatic aortic (valve) stenosis; Z79.82 Long term (current) use of aspirin; Z88.5 Allergy status to narcotic agent; R26.9 Unspecified abnormalities of gait and mobility; Z86.73 Personal history of transient ischemic attack (TIA), and cerebral infarction without residual deficits; E21.3 Hyperparathyroidism, unspecified; M10.9 Gout, unspecified; I95.9 Hypotension, unspecified; R79.89 Other specified abnormal findings of blood chemistry; J44.0 Chronic obstructive pulmonary disease with (acute) lower respiratory infection; E87.5 Hyperkalemia; E83.39 Other disorders of phosphorus metabolism; E87.8 Other disorders of electrolyte and fluid balance, not elsewhere classified; N64.4 Mastodynia; Z86.19 Personal history of other infectious and parasitic diseases; K21.9 Gastro-esophageal reflux disease without esophagitis; G89.29 Other chronic pain; M54.9 Dorsalgia, unspecified; E87.2 Acidosis; E86.0 Dehydration; E55.9 Vitamin D deficiency, unspecified
CPT/HCPCS: 71020; 71250; 74176; 78582; 80048; 80048 91; 82140; 82948; 83605; 84484; 85025; 85027; 87040; 93005; 94640; 94640 76; 99281; 99285; A9540; A9567; G0378; J0295; J1644; J7030; J7050

== ENCOUNTER 2017-02-18 11:53 | Inpatient (IN) | payer OTHER ==
[~2017-02-18] VITALS: Ht 152.4 cm; Wt 90.7 kg
[~2017-02-18 11:53] MED LIST changes: +ALDACTONE25 MG PO; +ASPIR 8181 M1 PO; +POTASSIUM CHLO20 ME2 PO
[2017-02-18 12:41] LABS: EOSINOPHIL COUNT 0.3 K/uL (0-0.3); HEMATOCRIT 28.1 % (36.0-46.0); IMMATURE GRANULOCYTE (%) 0.3 % (0.0-0.7); LYMPHOCYTE COUNT 0.7 K/uL (1.0-2.8); MCHC 30.6 G/DL (30.0-36.0); MCV 101.4 FL (83-99); MEAN PLAT.VOLUME 13.5 uM^3 (9.5-12.4); MONOCYTE COUNT 0.7 K/uL (0-0.8); NEUTROPHIL (%) 82.3 % (45-76); PLATELET COUNT 149 K/uL (156-360); RBC DIS.WIDTH-CV 19.9 % (11.8-14.6); RBC DIS.WIDTH-SD 73.7 % (39-53); RED BLOOD COUNT 2.77 M/uL (3.80-5.20); WHITE BLOOD COUNT 9.7 K/uL (4.1-10.2)
[2017-02-18 12:47] LABS: INTER. NORMALIZED RATIO 1.6; PROTHROMBIN TIME 17.7 SEC (10.2-12.9)
[2017-02-18 12:51] LABS: CHLORIDE 115 mEq/L (99-109); SODIUM 136 mEq/L (136-147)
[2017-02-18 12:53] LABS: GLUCOSE 159 mg/dL (70-99)
[2017-02-18 12:54] LABS: ANION GAP 10 MEQ/L (2-14)
[2017-02-18 12:55] LABS: TOTAL BILIRUBIN 0.9 mg/dL (0.0-1.0)
[2017-02-18 12:56] LABS: ALKALINE PHOSPHATASE 121 IU/L (3-129)
[2017-02-18 12:58] LABS: UREA NITROGEN (BUN) 40 mg/dL (9-23)
[2017-02-18 13:05] LABS: DIGOXIN 0.9 ng/mL (0.8-2.0); GFR ESTIMATE (CALCULATED) 22 mL/min/
[2017-02-18 16:30] VITALS: BP 118/52
[2017-02-18 19:13] VITALS: BP 113/66
[2017-02-18 21:20] LABS: POINT-OF-CARE METER ID UU14208753
[2017-02-18 23:42] VITALS: BP 109/54
[2017-02-19 03:23] VITALS: BP 116/69
[2017-02-19 06:23] LABS: POINT-OF-CARE METER ID UU14188577
[2017-02-19 07:42] VITALS: BP 126/54
[2017-02-19 11:32] VITALS: BP 98/45
[2017-02-19 11:41] LABS: POINT-OF-CARE METER ID UU14117124
[2017-02-19 14:15] LABS: C DIFF TOXIN POSITIVE (NEGATIVE)
[2017-02-19 14:23] LABS: PROBE CHECK PASS
[2017-02-19 15:02] LABS: ANION GAP 9 MEQ/L (2-14); CHLORIDE 108 MEQ/L (99-109); GLUCOSE 132 mg/dL (70-99); POTASSIUM 4.7 MEQ/L (3.7-5.4); SAMPLE HEMOLYSIS CHECK 0; SAMPLE ICTERIC CHECK 0; SAMPLE LIPEMIA CHECK 0; SODIUM 130 MEQ/L (136-147); UREA NITROGEN (BUN) 43 mg/dL (9-23)
[2017-02-19 15:04] LABS: GFR ESTIMATE (CALCULATED) 29 mL/min/
[2017-02-19 15:08] LABS: HEMATOCRIT 25.8 % (36.0-46.0); IMM.RETIC FRACTION 14.6 % (3-19); MCH 31.5 PG (29.0-34.0); MCHC 30.6 G/DL (30.0-36.0); MCV 102.8 FL (83-99); NRBC (%) 0.2 /100 WBC (0-0); PLATELET COUNT 140 K/uL (156-360); RBC DIS.WIDTH-SD 73.2 % (39-53); RED BLOOD COUNT 2.51 M/uL (3.80-5.20); RETIC HGB EQUIVALENT 30.4 (28-36); RETICULOCYTE COUNT 3.4 % (0.5-1.8); WHITE BLOOD COUNT 11.9 K/uL (4.1-10.2)
[2017-02-19 15:09] LABS: FERRITIN 158 NG/ML (10-291)
[2017-02-19 16:09] VITALS: BP 112/64
[2017-02-19 16:19] LABS: POINT-OF-CARE METER ID UU14208753
[2017-02-19 17:09] LABS: IRON 39 MCG/DL (35-150)
[2017-02-19 17:36] LABS: DIGOXIN 0.6 ng/mL (0.8-2.0)
[2017-02-19 22:09] LABS: POINT-OF-CARE METER ID UU14117124
[2017-02-19 23:14] VITALS: BP 102/56
[2017-02-20] VITALS (7 sets, daily range): BP systolic 85–126; BP diastolic 42–63
[2017-02-20 06:44] LABS: EOSINOPHIL (%) 1.6 % (0-5); EOSINOPHIL COUNT 0.2 K/uL (0-0.3); HEMATOCRIT 25.2 % (36.0-46.0); IMMATURE GRANULOCYTE (%) 0.5 % (0.0-0.7); IMMATURE GRANULOCYTE COUNT 0.1 K/uL; INSTRUMENT ABS NEUTROPHIL CT 7.8 K/uL; LYMPHOCYTE COUNT 0.5 K/uL (1.0-2.8); MCH 32.5 PG (29.0-34.0); MCHC 32.5 G/DL (30.0-36.0); MONOCYTE (%) 8.1 % (3-12); MONOCYTE COUNT 0.8 K/uL (0-0.8); NEUTROPHIL (%) 84.1 % (45-76); NEUTROPHIL COUNT 7.8 K/uL (1.8-6.4); NRBC (%) 0.2 /100 WBC (0-0); RBC DIS.WIDTH-CV 19.7 % (11.8-14.6); RBC DIS.WIDTH-SD 70.7 % (39-53); RED BLOOD COUNT 2.52 M/uL (3.80-5.20); WHITE BLOOD COUNT 9.3 K/uL (4.1-10.2)
[2017-02-20 06:50] LABS: POINT-OF-CARE METER ID UU14208753
[2017-02-20 07:06] LABS: ALKALINE PHOSPHATASE 122 IU/L (3-129); CHLORIDE 109 MEQ/L (99-109); GFR ESTIMATE (CALCULATED) 27 mL/min/; POTASSIUM 4.5 MEQ/L (3.7-5.4); SAMPLE HEMOLYSIS CHECK 0; SAMPLE ICTERIC CHECK 0; SAMPLE LIPEMIA CHECK 0; SODIUM 132 MEQ/L (136-147); TOTAL BILIRUBIN 1.2 MG/DL (0.0-1.0); UREA NITROGEN (BUN) 42 mg/dL (9-23)
[2017-02-20 07:09] LABS: ANION GAP 11 MEQ/L (2-14)
[2017-02-20 07:22] LABS: PLAT.SUFFICIENCY DECREASED; PLATELET COUNT 117 K/uL (156-360)
[2017-02-20 07:27] LABS: GLUCOSE 98 mg/dL (70-99)
[2017-02-20 12:08] LABS: POINT-OF-CARE METER ID UU14117124
[2017-02-20 16:34] LABS: POINT-OF-CARE METER ID UU14117124
[2017-02-20 21:59] LABS: POINT-OF-CARE METER ID UU14117124
[2017-02-21 00:03] VITALS: BP 108/53
[2017-02-21 08:10] VITALS: BP 100/51
[2017-02-21 10:34] LABS: HEMATOCRIT 23.3 % (36.0-46.0); MCH 31.1 PG (29.0-34.0); MCHC 31.8 G/DL (30.0-36.0); MCV 97.9 FL (83-99); MEAN PLAT.VOLUME 12.5 uM^3 (9.5-12.4); PLATELET COUNT 123 K/uL (156-360); RBC DIS.WIDTH-CV 19.8 % (11.8-14.6); RBC DIS.WIDTH-SD 67.4 % (39-53); RED BLOOD COUNT 2.38 M/uL (3.80-5.20); WHITE BLOOD COUNT 8.2 K/uL (4.1-10.2)
[2017-02-21 11:21] LABS: ANION GAP 10 MEQ/L (2-14); CHLORIDE 104 MEQ/L (99-109); GFR ESTIMATE (CALCULATED) 29 mL/min/; GLUCOSE 131 mg/dL (70-99); SAMPLE HEMOLYSIS CHECK 0; SAMPLE ICTERIC CHECK 0; SAMPLE LIPEMIA CHECK 0; SODIUM 128 MEQ/L (136-147); UREA NITROGEN (BUN) 41 mg/dL (9-23)
[2017-02-21 11:57] LABS: POINT-OF-CARE METER ID UU14208753
[2017-02-21 11:59] VITALS: BP 125/56
[2017-02-21 15:33] LABS: HEMATOCRIT 23.1 % (36.0-46.0); MCV 97.5 FL (83-99)
[2017-02-21 16:00] VITALS: BP 120/60
[2017-02-21 17:55] LABS: POINT-OF-CARE METER ID UU14188577
[2017-02-21 19:30] VITALS: BP 113/56
[2017-02-21 22:47] LABS: POINT-OF-CARE METER ID UU14188577
[2017-02-22] VITALS (7 sets, daily range): BP systolic 108–139; BP diastolic 52–68
[2017-02-22 06:30] LABS: POINT-OF-CARE METER ID UU14117124
[2017-02-22 06:53] LABS: EOSINOPHIL (%) 1.2 % (0-5); EOSINOPHIL COUNT 0.1 K/uL (0-0.3); HEMATOCRIT 22.2 % (36.0-46.0); IMMATURE GRANULOCYTE (%) 0.4 % (0.0-0.7); INSTRUMENT ABS NEUTROPHIL CT 6.6 K/uL; LYMPHOCYTE COUNT 0.4 K/uL (1.0-2.8); MCH 31.1 PG (29.0-34.0); MCV 97.4 FL (83-99); MONOCYTE (%) 7.1 % (3-12); MONOCYTE COUNT 0.6 K/uL (0-0.8); NEUTROPHIL (%) 85.3 % (45-76); NEUTROPHIL COUNT 6.6 K/uL (1.8-6.4); PLATELET COUNT 110 K/uL (156-360); RBC DIS.WIDTH-CV 19.8 % (11.8-14.6); RBC DIS.WIDTH-SD 67.2 % (39-53); RED BLOOD COUNT 2.28 M/uL (3.80-5.20); WHITE BLOOD COUNT 7.7 K/uL (4.1-10.2)
[2017-02-22 07:03] LABS: ALKALINE PHOSPHATASE 127 IU/L (3-129); ANION GAP 11 MEQ/L (2-14); CHLORIDE 102 MEQ/L (99-109); GFR ESTIMATE (CALCULATED) 29 mL/min/; GLUCOSE 115 mg/dL (70-99); POTASSIUM 4.2 MEQ/L (3.7-5.4); SAMPLE HEMOLYSIS CHECK 0; SAMPLE ICTERIC CHECK 0; SAMPLE LIPEMIA CHECK 0; SODIUM 127 MEQ/L (136-147); UREA NITROGEN (BUN) 41 mg/dL (9-23)
[2017-02-22 08:20] LABS: POINT-OF-CARE METER ID UU14117124
[2017-02-22 08:59] LABS: URIC ACID 3.9 mg/dL (3.1-9.2)
[2017-02-22 12:26] LABS: POINT-OF-CARE METER ID UU14117124
[2017-02-22 15:55] LABS: POINT-OF-CARE METER ID UU14117124
[2017-02-22 16:27] LABS: HEMATOCRIT 23.2 % (36.0-46.0); MCV 97.1 FL (83-99)
[2017-02-22 21:28] LABS: POINT-OF-CARE METER ID UU14208753
[2017-02-23 03:59] VITALS: BP 121/58
[2017-02-23 05:43] LABS: CARBON DIOXIDE (BICARBONATE) 18.1 MEQ/L (20-31)
[2017-02-23 05:51] LABS: EOSINOPHIL COUNT 0.1 K/uL (0-0.3); HEMATOCRIT 22.7 % (36.0-46.0); IMMATURE GRANULOCYTE (%) 0.7 % (0.0-0.7); IMMATURE GRANULOCYTE COUNT 0.1 K/uL; INSTRUMENT ABS NEUTROPHIL CT 6.9 K/uL; LYMPHOCYTE COUNT 0.5 K/uL (1.0-2.8); MCH 31.1 PG (29.0-34.0); MCHC 32.2 G/DL (30.0-36.0); MCV 96.6 FL (83-99); MONOCYTE (%) 8.6 % (3-12); MONOCYTE COUNT 0.7 K/uL (0-0.8); NEUTROPHIL (%) 83.7 % (45-76); NEUTROPHIL COUNT 6.9 K/uL (1.8-6.4); NRBC (%) 0.2 /100 WBC (0-0); PLATELET COUNT 118 K/uL (156-360); RBC DIS.WIDTH-SD 68.1 % (39-53); RED BLOOD COUNT 2.35 M/uL (3.80-5.20); WHITE BLOOD COUNT 8.3 K/uL (4.1-10.2)
[2017-02-23 06:15] LABS: ANION GAP 10 MEQ/L (2-14); CHLORIDE 103 MEQ/L (99-109); GFR ESTIMATE (CALCULATED) 27 mL/min/; GLUCOSE 108 mg/dL (70-99); POTASSIUM 4.5 MEQ/L (3.7-5.4); SAMPLE HEMOLYSIS CHECK 0; SAMPLE ICTERIC CHECK 0; SAMPLE LIPEMIA CHECK 0; SODIUM 128 MEQ/L (136-147); UREA NITROGEN (BUN) 46 mg/dL (9-23); URIC ACID 3.8 mg/dL (3.1-9.2)
[2017-02-23 06:43] LABS: POINT-OF-CARE METER ID UU14117124
[2017-02-23 09:29] VITALS: BP 130/70
[2017-02-23 11:45] VITALS: BP 124/58
[2017-02-23 12:06] LABS: POINT-OF-CARE METER ID UU14208753
[2017-02-23 15:59] VITALS: BP 125/57
[2017-02-23 16:29] LABS: POINT-OF-CARE METER ID UU14117124
[2017-02-23 19:58] VITALS: BP 114/74
[2017-02-23 21:27] LABS: POINT-OF-CARE METER ID UU14117124
[2017-02-23 23:07] VITALS: BP 106/54
[2017-02-24 04:18] VITALS: BP 128/60
[2017-02-24 07:26] LABS: ANION GAP 10 MEQ/L (2-14); CHLORIDE 103 MEQ/L (99-109); GFR ESTIMATE (CALCULATED) 25 mL/min/; GLUCOSE 108 mg/dL (70-99); POTASSIUM 4.8 MEQ/L (3.7-5.4); SAMPLE HEMOLYSIS CHECK 0; SAMPLE ICTERIC CHECK 0; SAMPLE LIPEMIA CHECK 0; SODIUM 129 MEQ/L (136-147); UREA NITROGEN (BUN) 51 mg/dL (9-23)
[2017-02-24 07:38] LABS: EOSINOPHIL (%) 1.2 % (0-5); EOSINOPHIL COUNT 0.1 K/uL (0-0.3); HEMATOCRIT 27.6 % (36.0-46.0); IMMATURE GRANULOCYTE (%) 1.2 % (0.0-0.7); IMMATURE GRANULOCYTE COUNT 0.1 K/uL; INSTRUMENT ABS NEUTROPHIL CT 7.5 K/uL; LYMPHOCYTE COUNT 0.5 K/uL (1.0-2.8); MCH 32.4 PG (29.0-34.0); MCHC 33.3 G/DL (30.0-36.0); MCV 97.2 FL (83-99); MONOCYTE (%) 7.9 % (3-12); MONOCYTE COUNT 0.7 K/uL (0-0.8); NEUTROPHIL (%) 83.6 % (45-76); NEUTROPHIL COUNT 7.5 K/uL (1.8-6.4); NRBC (%) 0.3 /100 WBC (0-0); RBC DIS.WIDTH-CV 20.5 % (11.8-14.6); RBC DIS.WIDTH-SD 70.4 % (39-53)
[2017-02-24 07:52] LABS: RED BLOOD COUNT 2.84 M/uL (3.80-5.20)
[2017-02-24 07:56] LABS: PLATELET COUNT 120 K/uL (156-360)
[2017-02-24 08:03] VITALS: BP 121/61
[2017-02-24 12:09] VITALS: BP 139/61
[2017-02-24 12:51] LABS: POINT-OF-CARE METER ID UU14117124
[2017-02-24 16:55] LABS: POINT-OF-CARE METER ID UU14117124
[2017-02-24 17:19] VITALS: BP 122/58
[2017-02-24 19:22] VITALS: BP 111/56
[2017-02-24 21:37] LABS: POINT-OF-CARE METER ID UU14117124
[2017-02-24 23:13] VITALS: BP 111/54
[2017-02-25 03:24] VITALS: BP 115/55
[2017-02-25 06:07] LABS: MCH 31.3 PG (29.0-34.0); MCHC 31.7 G/DL (30.0-36.0); MCV 98.7 FL (83-99); MEAN PLAT.VOLUME 12.6 uM^3 (9.5-12.4); NRBC (%) 0.7 /100 WBC (0-0); PLATELET COUNT 138 K/uL (156-360); RBC DIS.WIDTH-CV 20.9 % (11.8-14.6); RBC DIS.WIDTH-SD 70.3 % (39-53); RED BLOOD COUNT 2.33 M/uL (3.80-5.20); WHITE BLOOD COUNT 10.1 K/uL (4.1-10.2)
[2017-02-25 06:33] LABS: ANION GAP 9 MEQ/L (2-14); CHLORIDE 103 MEQ/L (99-109); GFR ESTIMATE (CALCULATED) 24 mL/min/; GFR ESTIMATE (CALCULATED) 25 mL/min/; GLUCOSE 105 mg/dL (70-99); GLUCOSE 106 mg/dL (70-99); POTASSIUM 4.9 MEQ/L (3.7-5.4); SAMPLE HEMOLYSIS CHECK 0; SAMPLE ICTERIC CHECK 0; SAMPLE LIPEMIA CHECK 0; SODIUM 129 MEQ/L (136-147); SODIUM 130 MEQ/L (136-147); UREA NITROGEN (BUN) 54 mg/dL (9-23); UREA NITROGEN (BUN) 55 mg/dL (9-23)
[2017-02-25 06:45] LABS: POINT-OF-CARE METER ID UU14208753
[2017-02-25 07:08] VITALS: BP 123/59
[2017-02-25 15:34] VITALS: BP 120/51
[2017-02-25 19:36] LABS: HEMATOCRIT 23.5 % (36.0-46.0); MCV 99.6 FL (83-99)
[2017-02-25 23:13] VITALS: BP 107/54
[2017-02-26 07:07] LABS: HEMATOCRIT 23.8 % (36.0-46.0); MCH 31.7 PG (29.0-34.0); MCHC 31.9 G/DL (30.0-36.0); MCV 99.2 FL (83-99); MEAN PLAT.VOLUME 11.1 uM^3 (9.5-12.4); NRBC (%) 0.8 /100 WBC (0-0); PLATELET COUNT 123 K/uL (156-360); RBC DIS.WIDTH-CV 21.1 % (11.8-14.6); RBC DIS.WIDTH-SD 71.7 % (39-53); WHITE BLOOD COUNT 14.5 K/uL (4.1-10.2)
[2017-02-26 07:30] LABS: ANION GAP 11 MEQ/L (2-14); CHLORIDE 103 MEQ/L (99-109); GFR ESTIMATE (CALCULATED) 24 mL/min/; GLUCOSE 113 mg/dL (70-99); POTASSIUM 4.9 MEQ/L (3.7-5.4); SAMPLE HEMOLYSIS CHECK 0; SAMPLE ICTERIC CHECK 0; SAMPLE LIPEMIA CHECK 0; SODIUM 130 MEQ/L (136-147); UREA NITROGEN (BUN) 62 mg/dL (9-23)
[2017-02-26 08:26] VITALS: BP 114/56
[2017-02-26 15:46] LABS: ADD MIUA? YES; BILIRUBIN NEGATIVE; BLOOD MODERATE; COLOR YELLOW ((YELLOW)); GLUCOSE (STRIP) NEGATIVE; KETONES NEGATIVE; LEUKOCYTES LARGE; NITRITE NEGATIVE; PROTEIN (STRIP) 30; SPECIFIC GRAVITY 1.014 (1.000-1.030); UROBILINOGEN 0.2 MG/DL (0.2-1.0)
[2017-02-26 16:12] LABS: CASTS PRESENT /LPF; EPITHELIAL CELLS NONE SEEN /HPF; HYALINE CASTS 0-5 /LPF; MUCUS NONE SEEN /LPF
[2017-02-26 16:13] LABS: BACTERIA 4+ /HPF; FINE GRANULAR CASTS RARE /LPF; RED BLOOD CELLS 0-5 /HPF (0-5); UCUL ADDED? YES; WHITE BLOOD CELLS TNTC /HPF (0-5)
[2017-02-26 17:07] VITALS: BP 111/52
[2017-02-26 17:13] LABS: POINT-OF-CARE METER ID UU14208753
[2017-02-26 19:49] LABS: HEMATOCRIT 25.3 % (36.0-46.0); MCV 102.8 FL (83-99)
[2017-02-26 21:17] LABS: POINT-OF-CARE METER ID UU14208753
[2017-02-27 00:08] VITALS: BP 110/36
[2017-02-27 04:34] VITALS: BP 112/34
[2017-02-27 06:27] LABS: POINT-OF-CARE METER ID UU14188577
[2017-02-27 06:52] LABS: HEMATOCRIT 23.9 % (36.0-46.0); MCH 33.2 PG (29.0-34.0); MCHC 32.6 G/DL (30.0-36.0); MCV 101.7 FL (83-99); MEAN PLAT.VOLUME 11.5 uM^3 (9.5-12.4); NRBC (%) 0.2 /100 WBC (0-0); PLATELET COUNT 122 K/uL (156-360); RBC DIS.WIDTH-CV 21.9 % (11.8-14.6); RBC DIS.WIDTH-SD 73.6 % (39-53); RED BLOOD COUNT 2.35 M/uL (3.80-5.20); WHITE BLOOD COUNT 20.7 K/uL (4.1-10.2)
[2017-02-27 06:53] LABS: HEMATOCRIT 23.9 % (36.0-46.0); MCV 101.7 FL (83-99)
[2017-02-27 07:15] LABS: ANION GAP 12 MEQ/L (2-14); CHLORIDE 104 MEQ/L (99-109); GFR ESTIMATE (CALCULATED) 23 mL/min/; GLUCOSE 168 mg/dL (70-99); POTASSIUM 4.6 MEQ/L (3.7-5.4); SAMPLE HEMOLYSIS CHECK 0; SAMPLE ICTERIC CHECK 0; SAMPLE LIPEMIA CHECK 0; SODIUM 132 MEQ/L (136-147); UREA NITROGEN (BUN) 67 mg/dL (9-23)
[2017-02-27 07:49] VITALS: BP 101/52
[2017-02-27 15:18] VITALS: BP 100/58
[2017-02-27 17:16] LABS: TYPE OF FLUID PARACENTESIS
[2017-02-27 17:37] LABS: POINT-OF-CARE METER ID UU14117124
[2017-02-27 17:50] LABS: BODY FLUID LDH 35 IU/L
[2017-02-27 17:54] LABS: BODY FLUID EOSINOPHILS 0 % (0-25); BODY FLUID RBC'S 5000 /MM^3 (0-100); BODY FLUID WBC'S 208 /MM^3 (0-500); MONONUCLEAR WBC'S 58 %; POLYNUCLEAR WBC'S 42 % (0-25)
[2017-02-27 19:30] VITALS: BP 96/50
[2017-02-27 19:53] LABS: HEMATOCRIT 23.2 % (36.0-46.0); MCV 101.3 FL (83-99)
[2017-02-27 21:56] LABS: POINT-OF-CARE METER ID UU14117124
[2017-02-28] VITALS (8 sets, daily range): BP systolic 90–114; BP diastolic 44–62
[2017-02-28 05:56] LABS: CARBON DIOXIDE (BICARBONATE) 20.8 MEQ/L (20-31)
[2017-02-28 06:00] LABS: POINT-OF-CARE METER ID UU14208753
[2017-02-28 06:23] LABS: ANION GAP 11 MEQ/L (2-14); CHLORIDE 104 MEQ/L (99-109); GFR ESTIMATE (CALCULATED) 22 mL/min/; POTASSIUM 4.1 MEQ/L (3.7-5.4); SAMPLE HEMOLYSIS CHECK 0; SAMPLE ICTERIC CHECK 0; SAMPLE LIPEMIA CHECK 0; SODIUM 134 MEQ/L (136-147); UREA NITROGEN (BUN) 71 mg/dL (9-23)
[2017-02-28 06:36] LABS: GLUCOSE 115 mg/dL (70-99)
[2017-02-28 08:58] LABS: HEMATOCRIT 26.3 % (36.0-46.0); MCH 32.4 PG (29.0-34.0); MCHC 31.9 G/DL (30.0-36.0); MCV 101.5 FL (83-99); NRBC (%) 0.5 /100 WBC (0-0); PLATELET COUNT 130 K/uL (156-360); RBC DIS.WIDTH-CV 21.7 % (11.8-14.6); RBC DIS.WIDTH-SD 74.9 % (39-53); RED BLOOD COUNT 2.59 M/uL (3.80-5.20); WHITE BLOOD COUNT 13.9 K/uL (4.1-10.2)
[2017-02-28 09:01] LABS: MEAN PLAT.VOLUME 13.5 uM^3 (9.5-12.4)
[2017-02-28 09:07] LABS: CHLORIDE 104 mEq/L (99-109); POTASSIUM 3.9 mEq/L (3.7-5.4); SODIUM 134 mEq/L (136-147)
[2017-02-28 09:09] LABS: GLUCOSE 113 mg/dL (70-99)
[2017-02-28 09:10] LABS: ANION GAP 13 MEQ/L (2-14)
[2017-02-28 09:13] LABS: GFR ESTIMATE (CALCULATED) 20 mL/min/
[2017-02-28 09:14] LABS: UREA NITROGEN (BUN) 75 mg/dL (9-23)
[2017-02-28 11:41] LABS: POINT-OF-CARE METER ID UU14208753
[2017-02-28 16:10] LABS: AMYLASE 16 IU/L (1-118)
[2017-02-28 16:15] LABS: LIPASE 21 U/L (1.0-51.0)
[2017-02-28 16:53] LABS: POINT-OF-CARE METER ID UU14208753
[2017-02-28 21:04] LABS: POINT-OF-CARE METER ID UU14117124
[2017-03-01] VITALS (7 sets, daily range): BP systolic 99–128; BP diastolic 48–64
[2017-03-01 05:48] LABS: HEMATOCRIT 22.7 % (36.0-46.0); MCH 33.8 PG (29.0-34.0); MCV 102.3 FL (83-99); NRBC (%) 0.2 /100 WBC (0-0); RBC DIS.WIDTH-CV 22.3 % (11.8-14.6); RBC DIS.WIDTH-SD 77.5 % (39-53); RED BLOOD COUNT 2.22 M/uL (3.80-5.20); WHITE BLOOD COUNT 12.4 K/uL (4.1-10.2)
[2017-03-01 06:06] LABS: ANION GAP 12 MEQ/L (2-14); CHLORIDE 103 MEQ/L (99-109); GFR ESTIMATE (CALCULATED) 22 mL/min/; GLUCOSE 129 mg/dL (70-99); POTASSIUM 3.7 MEQ/L (3.7-5.4); SAMPLE HEMOLYSIS CHECK 0; SAMPLE ICTERIC CHECK 0; SAMPLE LIPEMIA CHECK 0; SODIUM 134 MEQ/L (136-147); UREA NITROGEN (BUN) 77 mg/dL (9-23)
[2017-03-01 06:12] LABS: PLAT.SUFFICIENCY DECREASED; PLATELET COUNT 125 K/uL (156-360)
[2017-03-01 06:30] LABS: POINT-OF-CARE METER ID UU14117124
[2017-03-01 12:12] LABS: POINT-OF-CARE METER ID UU14117124
[2017-03-01 17:03] LABS: POINT-OF-CARE METER ID UU14117124
[2017-03-01 21:35] LABS: POINT-OF-CARE METER ID UU14208753
[2017-03-02 02:56] VITALS: BP 122/80
[2017-03-02 05:24] LABS: HEMATOCRIT 24.7 % (36.0-46.0); MCH 31.7 PG (29.0-34.0); MCHC 31.2 G/DL (30.0-36.0); MCV 101.6 FL (83-99); MEAN PLAT.VOLUME 12.3 uM^3 (9.5-12.4); NRBC (%) 0.2 /100 WBC (0-0); PLATELET COUNT 101 K/uL (156-360); RBC DIS.WIDTH-SD 77.9 % (39-53); RED BLOOD COUNT 2.43 M/uL (3.80-5.20); WHITE BLOOD COUNT 11.1 K/uL (4.1-10.2)
[2017-03-02 05:46] LABS: ANION GAP 11 MEQ/L (2-14); CHLORIDE 102 MEQ/L (99-109); GFR ESTIMATE (CALCULATED) 24 mL/min/; GLUCOSE 119 mg/dL (70-99); POTASSIUM 3.7 MEQ/L (3.7-5.4); SAMPLE HEMOLYSIS CHECK 0; SAMPLE ICTERIC CHECK 0; SAMPLE LIPEMIA CHECK 0; SODIUM 133 MEQ/L (136-147); UREA NITROGEN (BUN) 81 mg/dL (9-23)
[2017-03-02 08:07] VITALS: BP 105/52
[2017-03-02 11:16] VITALS: BP 124/48
[2017-03-02 11:26] LABS: POINT-OF-CARE METER ID UU14117124
[2017-03-02] MEDS ORDERED: XIFAXAN550 MG PO (13:48)
[2017-03-02] MEDS ORDERED: NABI650T PO (13:49)
[2017-03-02] MEDS ORDERED: VANCOCIN 250 M250 MG PO (13:50)
[2017-03-02] MEDS ORDERED: CONSTULOSE10 GM/15 M PO (13:51)
[2017-03-06] MEDS ORDERED: BREO ELLIPTA 21 EACH IH (15:16)
[2017-03-06] MEDS ORDERED: ASPERCREME1 EACH TP (15:17)
[2017-03-06] MEDS ORDERED: ULTRAM50 MG PO (15:18)
== END 2017-03-02 16:16 | DRG 372 ==
LOC: EME 11:53 → ENRESERV 15:03 → 3EAST 15:20 → EDOF 15:20 → ENRESERV 15:56 → 3EAST 16:20
PROVIDERS: Emergency Medicine; Hospitalist; Internal Medicine; Internal Medicine Gastroenterology; Internal Medicine Nephrology; Physician Assistant; Radiology Diagnostic Radiology
PROC: 0W9G30Z Drainage of Peritoneal Cavity with Drainage Device, Percutaneous Approach (ICD-10-PCS; principal; 2017-02-27)
DX: A04.71 Enterocolitis due to Clostridium difficile, recurrent (principal); N17.9 Acute kidney failure, unspecified; E87.2 Acidosis; E86.0 Dehydration; R82.71 Bacteriuria; B96.1 Klebsiella pneumoniae [K. pneumoniae] as the cause of diseases classified elsewhere; K72.90 Hepatic failure, unspecified without coma; K74.69 Other cirrhosis of liver; K76.6 Portal hypertension; K31.89 Other diseases of stomach and duodenum; R18.8 Other ascites; E87.1 Hypo-osmolality and hyponatremia; I13.0 Hypertensive heart and chronic kidney disease with heart failure and stage 1 through stage 4 chronic kidney disease, or unspecified chronic kidney disease; I50.32 Chronic diastolic (congestive) heart failure; E11.22 Type 2 diabetes mellitus with diabetic chronic kidney disease; N18.3 Chronic kidney disease, stage 3 (moderate); N25.81 Secondary hyperparathyroidism of renal origin; D63.1 Anemia in chronic kidney disease; D50.9 Iron deficiency anemia, unspecified; E55.9 Vitamin D deficiency, unspecified; E78.5 Hyperlipidemia, unspecified; G47.30 Sleep apnea, unspecified; I25.10 Atherosclerotic heart disease of native coronary artery without angina pectoris; J44.9 Chronic obstructive pulmonary disease, unspecified; K21.9 Gastro-esophageal reflux disease without esophagitis; M10.9 Gout, unspecified; I27.20 Pulmonary hypertension, unspecified; I48.2 Chronic atrial fibrillation; I87.2 Venous insufficiency (chronic) (peripheral); I89.0 Lymphedema, not elsewhere classified; K46.9 Unspecified abdominal hernia without obstruction or gangrene; K76.0 Fatty (change of) liver, not elsewhere classified; E87.6 Hypokalemia; T50.2X5A Adverse effect of carbonic-anhydrase inhibitors, benzothiadiazides and other diuretics, initial encounter; E66.9 Obesity, unspecified; M48.02 Spinal stenosis, cervical region; R16.1 Splenomegaly, not elsewhere classified; F31.9 Bipolar disorder, unspecified; Z96.653 Presence of artificial knee joint, bilateral; Z68.37 Body mass index [BMI] 37.0-37.9, adult; Z79.82 Long term (current) use of aspirin; Z86.73 Personal history of transient ischemic attack (TIA), and cerebral infarction without residual deficits; Z79.84 Long term (current) use of oral hypoglycemic drugs; Z85.828 Personal history of other malignant neoplasm of skin
CPT/HCPCS: 49083; 71010; 71020; 74176; 76705; 80048; 80048 91; 80053; 80069; 80162; 81003; 82140; 82150; 82436; 82607; 82728; 82746; 82803; 82948; 83540; 83605; 83615 91; 83690; 83880; 83935; 84133; 84300; 84466; 84550; 85014; 85018; 85025; 85027; 85045; 85610; 87040; 87070; 87075; 87077; 87086; 87186; 87205; 87493; 88108; 89051; 93005; 94640; 94640 76; 97530 GO; 97530 GP; 99281; 99284; J0696; J0881; J1644; J1756; J1815; J1940; J2405; J7030; J7040; J7050; J7070; J7120; P9047; S0030

== ENCOUNTER 2017-04-07 16:44 | Inpatient (IN) | payer OTHER ==
[~2017-04-07] VITALS: Ht 152.4 cm; Wt 90.2 kg
[~2017-04-07 16:44] MED LIST changes: +ASPERCREME1 EACH TP; +BREO ELLIPTA 21 EACH IH; +CONSTULOSE10 GM/15 M PO; +NABI650T PO; +XIFAXAN550 MG PO
[2017-04-07 18:12] LABS: HEMATOCRIT 35.4 % (36.0-46.0); MCH 33.5 PG (29.0-34.0); MCHC 32.5 G/DL (30.0-36.0); MCV 103.2 FL (83-99); MEAN PLAT.VOLUME 12.6 uM^3 (9.5-12.4); PLATELET COUNT 129 K/uL (156-360); RBC DIS.WIDTH-CV 19.1 % (11.8-14.6); RBC DIS.WIDTH-SD 72.6 % (39-53); RED BLOOD COUNT 3.43 M/uL (3.80-5.20); WHITE BLOOD COUNT 12.1 K/uL (4.1-10.2)
[2017-04-07 18:24] LABS: CHLORIDE 107 mEq/L (99-109); POTASSIUM 4.8 mEq/L (3.7-5.4); SODIUM 132 mEq/L (136-147)
[2017-04-07 18:27] LABS: GLUCOSE 140 mg/dL (70-99)
[2017-04-07 18:28] LABS: ANION GAP 10 MEQ/L (2-14); TOTAL BILIRUBIN 1.2 mg/dL (0.0-1.0)
[2017-04-07 18:30] LABS: ALKALINE PHOSPHATASE 202 IU/L (3-129); GFR ESTIMATE (CALCULATED) 33 mL/min/
[2017-04-07 18:31] LABS: UREA NITROGEN (BUN) 36 mg/dL (9-23)
[2017-04-07 18:32] LABS: DIRECT BILIRUBIN 0.5 mg/dL (0.0-0.3)
[2017-04-07 18:34] LABS: LIPASE 15 U/L (1.0-51.0)
[2017-04-07] MEDS ORDERED: CHILD ASPIRIN81 M1 PO (21:29)
[2017-04-07] MEDS ORDERED: HUMALOG100 UNIT/1 SC (21:31)
[2017-04-07] MEDS ORDERED: NEURONTIN100 MG PO (21:33)
[2017-04-07] MEDS ORDERED: ORAL ANESTHETIC7 GM MM (21:35)
[2017-04-07] MEDS ORDERED: METOLAZONE2.5 MG PO (21:36)
[2017-04-07] MEDS ORDERED: NABI650T PO (21:38)
[2017-04-07] MEDS ORDERED: BREO ELLIPTA 21 EACH IH (21:39)
[2017-04-07] MEDS ORDERED: ASPERCREME1 EACH TP (21:40)
[2017-04-07] MEDS ORDERED: QUESTRAN PACKET4 GM PO (21:40)
[2017-04-07] MEDS ORDERED: CONSTULOSE10 GM/15 M PO (21:42)
[2017-04-08] VITALS (7 sets, daily range): BP systolic 94–162; BP diastolic 43–78
[2017-04-08 15:01] LABS: C DIFF TOXIN ND (NEGATIVE)
[2017-04-08 16:39] LABS: POINT-OF-CARE METER ID UU13113781
[2017-04-08 21:00] LABS: POINT-OF-CARE METER ID UU14174216
[2017-04-09 03:05] VITALS: BP 116/53
[2017-04-09 05:17] LABS: BASOPHIL COUNT 0.1 K/uL (0-0.1); EOSINOPHIL (%) 25.2 % (0-5); EOSINOPHIL COUNT 3.4 K/uL (0-0.3); HEMATOCRIT 31.8 % (36.0-46.0); IMMATURE GRANULOCYTE (%) 0.3 % (0.0-0.7); INSTRUMENT ABS NEUTROPHIL CT 7.7 K/uL; LYMPHOCYTE COUNT 1.4 K/uL (1.0-2.8); MCH 32.3 PG (29.0-34.0); MCHC 30.8 G/DL (30.0-36.0); MEAN PLAT.VOLUME 11.9 uM^3 (9.5-12.4); MONOCYTE (%) 6.7 % (3-12); MONOCYTE COUNT 0.9 K/uL (0-0.8); NEUTROPHIL (%) 57.1 % (45-76); NEUTROPHIL COUNT 7.7 K/uL (1.8-6.4); PLATELET COUNT 92 K/uL (156-360); RBC DIS.WIDTH-CV 18.8 % (11.8-14.6); RBC DIS.WIDTH-SD 72.7 % (39-53); RED BLOOD COUNT 3.03 M/uL (3.80-5.20); WHITE BLOOD COUNT 13.6 K/uL (4.1-10.2)
[2017-04-09 05:22] LABS: INTER. NORMALIZED RATIO 1.4; PROTHROMBIN TIME 15.9 SEC (10.2-12.9)
[2017-04-09 05:46] LABS: ALKALINE PHOSPHATASE 177 IU/L (3-129); ANION GAP 11 MEQ/L (2-14); CHLORIDE 105 MEQ/L (99-109); GFR ESTIMATE (CALCULATED) 29 mL/min/; GLUCOSE 96 mg/dL (70-99); POTASSIUM 4.6 MEQ/L (3.7-5.4); SAMPLE HEMOLYSIS CHECK 0; SAMPLE ICTERIC CHECK 0; SAMPLE LIPEMIA CHECK 0; SODIUM 132 MEQ/L (136-147); TOTAL BILIRUBIN 1.1 MG/DL (0.0-1.0); UREA NITROGEN (BUN) 43 mg/dL (9-23)
[2017-04-09 06:15] LABS: DIGOXIN 0.5 ng/mL (0.8-2.0)
[2017-04-09 07:40] LABS: POINT-OF-CARE METER ID UU13113781
[2017-04-09 08:23] VITALS: BP 109/56
[2017-04-09 10:34] VITALS: BP 102/53
[2017-04-09 10:43] LABS: POINT-OF-CARE METER ID UU13113781
[2017-04-09 15:49] VITALS: BP 106/54
[2017-04-09 16:50] LABS: POINT-OF-CARE METER ID UU13113781
[2017-04-09 20:37] VITALS: BP 108/55
[2017-04-09 20:44] LABS: POINT-OF-CARE METER ID UU14174216
[2017-04-10 00:16] VITALS: BP 116/82
[2017-04-10 03:38] VITALS: BP 119/50
[2017-04-10 05:42] LABS: BASOPHIL COUNT 0.1 K/uL (0-0.1); EOSINOPHIL (%) 9.1 % (0-5); EOSINOPHIL COUNT 1.4 K/uL (0-0.3); IMMATURE GRANULOCYTE (%) 0.3 % (0.0-0.7); IMMATURE GRANULOCYTE COUNT 0.1 K/uL; INSTRUMENT ABS NEUTROPHIL CT 12.3 K/uL; LYMPHOCYTE COUNT 0.7 K/uL (1.0-2.8); MCH 33.3 PG (29.0-34.0); MCHC 31.9 G/DL (30.0-36.0); MCV 104.4 FL (83-99); MEAN PLAT.VOLUME 11.3 uM^3 (9.5-12.4); MONOCYTE (%) 6.8 % (3-12); MONOCYTE COUNT 1.1 K/uL (0-0.8); NEUTROPHIL (%) 78.7 % (45-76); NEUTROPHIL COUNT 12.3 K/uL (1.8-6.4); PLATELET COUNT 113 K/uL (156-360); RBC DIS.WIDTH-CV 18.9 % (11.8-14.6); RBC DIS.WIDTH-SD 72.8 % (39-53); RED BLOOD COUNT 2.97 M/uL (3.80-5.20); WHITE BLOOD COUNT 15.7 K/uL (4.1-10.2)
[2017-04-10 06:01] LABS: ANION GAP 10 MEQ/L (2-14); CHLORIDE 106 MEQ/L (99-109); GFR ESTIMATE (CALCULATED) 25 mL/min/; GLUCOSE 114 mg/dL (70-99); POTASSIUM 5.1 MEQ/L (3.7-5.4); SAMPLE HEMOLYSIS CHECK 0; SAMPLE ICTERIC CHECK 0; SAMPLE LIPEMIA CHECK 0; SODIUM 132 MEQ/L (136-147); UREA NITROGEN (BUN) 44 mg/dL (9-23)
[2017-04-10 07:36] LABS: POINT-OF-CARE METER ID UU13113781
[2017-04-10 08:48] LABS: ABS NEUTROPHIL COUNT 13.3; ANISOCYTOSIS 2+; BAND NEUTROPHILS 0.9 % (0-8.0); BASOPHILS 0.9 %; EOSINOPHIL ABS CT 1.1; EOSINOPHILS 6.9 % (0-5.0); LYMPHOCYTES 1.7 % (15.0-45.0); MACROCYTES 2+; OVALOCYTES 2+; PLAT.SUFFICIENCY DECREASED; POIKILOCYTOSIS 1+; SEG.NEUTROPHILS 83.5 % (46.0-76.0)
[2017-04-10 09:00] VITALS: BP 100/53
[2017-04-10 11:26] LABS: POINT-OF-CARE METER ID UU13113698
[2017-04-10 13:11] VITALS: BP 100/50
[2017-04-10 16:23] LABS: POINT-OF-CARE METER ID UU13113781
[2017-04-10 16:50] VITALS: BP 103/52
[2017-04-10 21:13] LABS: TYPE OF FLUID PARACENTESIS
[2017-04-10 21:25] LABS: POINT-OF-CARE METER ID UU13113698; POINT-OF-CARE USER ID ENVMNS
[2017-04-10 21:58] LABS: BODY FLUID EOSINOPHILS 0 % (0-25); BODY FLUID RBC'S < 1000 /MM^3 (0-100); BODY FLUID WBC'S 116 /MM^3 (0-500); MONONUCLEAR WBC'S 59 %; POLYNUCLEAR WBC'S 41 % (0-25)
[2017-04-10 22:20] LABS: BODY FLUID PROTEIN < 3.0 G/DL
[2017-04-10 23:33] VITALS: BP 104/49
[2017-04-11 03:20] VITALS: BP 111/56
[2017-04-11 04:28] LABS: C DIFF TOXIN NEGATIVE (NEGATIVE)
[2017-04-11 04:31] LABS: PROBE CHECK PASS; SPECIMEN PROCESSING CONTROL PASS
[2017-04-11 05:39] LABS: CARBON DIOXIDE (BICARBONATE) 19.6 MEQ/L (20-31); HEMATOCRIT 25.7 % (36.0-46.0); MCH 33.9 PG (29.0-34.0); MCHC 31.9 G/DL (30.0-36.0); MCV 106.2 FL (83-99); MEAN PLAT.VOLUME 11.5 uM^3 (9.5-12.4); NRBC (%) 0.2 /100 WBC (0-0); PLATELET COUNT 87 K/uL (156-360); RBC DIS.WIDTH-CV 18.7 % (11.8-14.6); RBC DIS.WIDTH-SD 73.9 % (39-53); RED BLOOD COUNT 2.42 M/uL (3.80-5.20); WHITE BLOOD COUNT 8.3 K/uL (4.1-10.2)
[2017-04-11 06:03] LABS: ANION GAP 9 MEQ/L (2-14); CHLORIDE 103 MEQ/L (99-109); GFR ESTIMATE (CALCULATED) 18 mL/min/; GLUCOSE 105 mg/dL (70-99); POTASSIUM 5.1 MEQ/L (3.7-5.4); SAMPLE HEMOLYSIS CHECK 1; SAMPLE ICTERIC CHECK 0; SAMPLE LIPEMIA CHECK 0; SODIUM 129 MEQ/L (136-147); UREA NITROGEN (BUN) 47 mg/dL (9-23)
[2017-04-11 07:50] LABS: POINT-OF-CARE METER ID UU14314088
[2017-04-11 08:28] VITALS: BP 97/54
[2017-04-11 08:37] LABS: INTACT PARATHYROID HORMONE 58 pg/mL (10-69)
[2017-04-11 10:02] LABS: METH RESISTANT S AUREUS PCR NEGATIVE (NEGATIVE)
[2017-04-11 10:29] LABS: PROBE CHECK PASS; SPECIMEN PROCESSING CONTROL PASS
[2017-04-11 11:31] LABS: POINT-OF-CARE METER ID UU14314088
[2017-04-11 11:38] VITALS: BP 93/46
[2017-04-11 16:20] LABS: POINT-OF-CARE METER ID UU13113698
[2017-04-11 17:08] VITALS: BP 109/54
[2017-04-11 18:11] LABS: UR CREATININE CONCENTRATION 164.2 MG/DL
[2017-04-11 19:42] VITALS: BP 108/52
[2017-04-11 21:02] LABS: POINT-OF-CARE METER ID UU14314088
[2017-04-11 23:54] VITALS: BP 106/51
[2017-04-12 05:27] VITALS: BP 98/62
[2017-04-12 06:33] LABS: GFR ESTIMATE (CALCULATED) 17 mL/min/; GLUCOSE 78 mg/dL (70-99); SAMPLE HEMOLYSIS CHECK 1; SAMPLE ICTERIC CHECK 0; SAMPLE LIPEMIA CHECK 0; UREA NITROGEN (BUN) 51 mg/dL (9-23)
[2017-04-12 06:59] LABS: ANION GAP 11 MEQ/L (2-14); CHLORIDE 102 MEQ/L (99-109); POTASSIUM 4.9 MEQ/L (3.7-5.4); SODIUM 129 MEQ/L (136-147)
[2017-04-12 07:00] VITALS: BP 97/50
[2017-04-12 07:54] LABS: POINT-OF-CARE METER ID UU14314088; POINT-OF-CARE USER ID ENVKC36
[2017-04-12 12:39] VITALS: BP 96/47
[2017-04-12 16:40] VITALS: BP 110/48
[2017-04-12 23:44] VITALS: BP 101/51
[2017-04-13 05:46] LABS: HEMATOCRIT 25.9 % (36.0-46.0); MCH 33.9 PG (29.0-34.0); MCHC 32.4 G/DL (30.0-36.0); MCV 104.4 FL (83-99); MEAN PLAT.VOLUME 12.4 uM^3 (9.5-12.4); PLATELET COUNT 94 K/uL (156-360); RBC DIS.WIDTH-CV 18.5 % (11.8-14.6); RBC DIS.WIDTH-SD 70.7 % (39-53); RED BLOOD COUNT 2.48 M/uL (3.80-5.20); WHITE BLOOD COUNT 9.6 K/uL (4.1-10.2)
[2017-04-13 06:25] LABS: ANION GAP 12 MEQ/L (2-14); CHLORIDE 105 MEQ/L (99-109); GFR ESTIMATE (CALCULATED) 13 mL/min/; GLUCOSE 82 mg/dL (70-99); POTASSIUM 5.5 MEQ/L (3.7-5.4); SAMPLE HEMOLYSIS CHECK 2; SAMPLE ICTERIC CHECK 0; SAMPLE LIPEMIA CHECK 0; SODIUM 133 MEQ/L (136-147); UREA NITROGEN (BUN) 58 mg/dL (9-23)
[2017-04-13 07:37] VITALS: BP 89/41
[2017-04-13 15:55] VITALS: BP 92/44
[2017-04-13 23:27] VITALS: BP 101/49
[2017-04-14 06:47] LABS: ANION GAP 10 MEQ/L (2-14); CHLORIDE 103 MEQ/L (99-109); GFR ESTIMATE (CALCULATED) 11 mL/min/; GLUCOSE 73 mg/dL (70-99); POTASSIUM 5.4 MEQ/L (3.7-5.4); SAMPLE HEMOLYSIS CHECK 0; SAMPLE ICTERIC CHECK 0; SAMPLE LIPEMIA CHECK 0; SODIUM 131 MEQ/L (136-147); UREA NITROGEN (BUN) 64 mg/dL (9-23)
[2017-04-14 07:53] VITALS: BP 100/46
[2017-04-14 15:34] VITALS: BP 102/49
[2017-04-14] MEDS ORDERED: LORAZEPAM0.5 MG PO (15:35)
[2017-04-14] MEDS ORDERED: HYOSCYAMINE0.125 M1 SL (15:35)
[2017-04-14] MEDS ORDERED: MORPHINE CON20 MG/M1 PO (15:54)
[2017-04-14] MEDS ORDERED: CARDIZEM30 MG PO (17:22)
[2017-04-14] MEDS ORDERED: Chronulac,Cephulac,E PO (17:22)
[2017-04-14] MEDS ORDERED: BREO ELLIPTA 21 EACH IH (17:22)
== END 2017-04-14 20:11 | disposition hospice, home (50) | DRG 433 ==
LOC: EME → EDBD 16:44 → EME 16:44 → EDOF 23:27 → 4EAST 23:27 → ENRESERV 23:29 → 4EAST 04-08 12:08 → ENRESERV 04-12 13:54 → 5EAST 04-12 15:43
PROVIDERS: Emergency Medicine; Internal Medicine; Internal Medicine Gastroenterology
PROC: 0W9G3ZZ Drainage of Peritoneal Cavity, Percutaneous Approach (ICD-10-PCS; principal; 2017-04-09)
DX: K74.69 Other cirrhosis of liver (principal); J44.9 Chronic obstructive pulmonary disease, unspecified; A04.72 Enterocolitis due to Clostridium difficile, not specified as recurrent; N17.9 Acute kidney failure, unspecified; I13.0 Hypertensive heart and chronic kidney disease with heart failure and stage 1 through stage 4 chronic kidney disease, or unspecified chronic kidney disease; N18.3 Chronic kidney disease, stage 3 (moderate); I48.2 Chronic atrial fibrillation; K21.9 Gastro-esophageal reflux disease without esophagitis; I27.20 Pulmonary hypertension, unspecified; E87.1 Hypo-osmolality and hyponatremia; E88.09 Other disorders of plasma-protein metabolism, not elsewhere classified; I25.10 Atherosclerotic heart disease of native coronary artery without angina pectoris; I50.32 Chronic diastolic (congestive) heart failure; K75.81 Nonalcoholic steatohepatitis (NASH); E66.9 Obesity, unspecified; E11.22 Type 2 diabetes mellitus with diabetic chronic kidney disease; Z86.73 Personal history of transient ischemic attack (TIA), and cerebral infarction without residual deficits; Z99.3 Dependence on wheelchair; K76.6 Portal hypertension; R18.8 Other ascites; M10.9 Gout, unspecified; E55.9 Vitamin D deficiency, unspecified; I35.0 Nonrheumatic aortic (valve) stenosis; E87.2 Acidosis; Z68.41 Body mass index [BMI] 40.0-44.9, adult; Z79.4 Long term (current) use of insulin; D63.8 Anemia in other chronic diseases classified elsewhere
CPT/HCPCS: 49083; 74176; 80048; 80053; 80069; 80076; 80162; 81003; 82330; 82436; 82570; 82803; 82948; 83690; 83970; 84100; 84157; 84300; 85007; 85025; 85027; 85610; 87070; 87077; 87186; 87205; 87493; 87641; 89051; 93005; 99281; 99285; J1644; J1815; J2405; J7030; J7050; P9047